=== PATIENT | female | born 1975 | race Caucasian/White ===

== ENCOUNTER 2018-06-14 00:19 | Outpatient (CLI) | payer OTHER, SELFPAY ==
--- NOTE | 2018-06-14 15:00 | DI.MAMMO_ITS ---
SYMPTOM/DIAGNOSIS: 6 MONTH F/U, R92.8, H/O RT BREAST LUMP MAMMOGRAMS: Mammograms were interpreted according to the usual protocol including computer analysis with CAD system, tomosynthesis and C view imaging. Comparison is made with prior examinations. Breast density, Category B. No masses or microcalcifications are seen. There is nothing to suggest malignancy. IMPRESSION: Negative mammogram. Routine screening is recommended. Category 1. MQSA ASSESSMENT OF FINDINGS: Negative. Category 1. Patient will receive a letter notifying them of these results. BI-RADS category B. There are scattered areas of fibroglandular density.
== END 2018-06-14 00:39 ==
DX: R92.8 Other abnormal and inconclusive findings on diagnostic imaging of breast (principal)
CPT/HCPCS: 77062; 77066; G0279

== ENCOUNTER 2018-06-15 02:09 | Outpatient (CLI) | payer OTHER, SELFPAY ==
[2018-06-15 11:47] LABS: ALT 31 U/L (12-78); AST 16 U/L (15-37); Albumin 3.7 g/dL (3.4-5.0); Alkaline Phosphatase 75 U/L (46-116); Anion Gap 8.5 mmol/L (3-11); BUN 14 mg/dL (7-18); Bilirubin, Total 0.3 mg/dL (0.2-1.0); CO2 27.5 mmol/L (21.0-32.0); CREATININE 0.76 mg/dL (0.55-1.02); Calcium 8.5 mg/dL (8.5-10.1); Chloride 105 mmol/L (98-107); Cholesterol 169 mg/dL (50-200); Glucose 98 mg/dL (70-100); HDL Cholesterol 35 mg/dL (40-60); LDL CHOLESTEROL 118 mg/dL (<100); Potassium 4.6 mmol/L (3.5-5.1); Sodium 141 mmol/L (136-145); TSH (W/Ref FT4) 2.39 uIU/mL (0.358-3.74); Total Protein 7.3 g/dL (6.4-8.2); Triglyceride 97 mg/dL (30-150)
== END 2018-06-15 02:29 ==
DX: F32.9 Major depressive disorder, single episode, unspecified (principal); E03.9 Hypothyroidism, unspecified; M77.11 Lateral epicondylitis, right elbow; M77.12 Lateral epicondylitis, left elbow; Z00.00 Encounter for general adult medical examination without abnormal findings
CPT/HCPCS: 36415; 80053; 80061; 83721; 84443

== ENCOUNTER 2019-06-05 01:38 | Outpatient (CLI) | payer OTHER, SELFPAY ==
[2019-06-05 08:42] LABS: ALT 25 U/L (14-59); AST 16 U/L (15-37); Albumin 3.5 g/dL (3.4-5.0); Alkaline Phosphatase 75 U/L (46-116); Anion Gap 8.3 mmol/L (3-11); BUN 14 mg/dL (7-18); Bilirubin, Total 0.4 mg/dL (0.2-1.0); CO2 26.7 mmol/L (21.0-32.0); CREATININE 0.64 mg/dL (0.55-1.02); Calcium 8.7 mg/dL (8.5-10.1); Chloride 107 mmol/L (98-107); Glucose 101 mg/dL (70-100); Potassium 4.1 mmol/L (3.5-5.1); Sodium 142 mmol/L (136-145); Total Protein 7.1 g/dL (6.4-8.2)
== END 2019-06-05 01:58 ==
DX: E03.9 Hypothyroidism, unspecified (principal); F32.9 Major depressive disorder, single episode, unspecified; G89.29 Other chronic pain; M54.5 Low back pain; R63.8 Other symptoms and signs concerning food and fluid intake; Z00.00 Encounter for general adult medical examination without abnormal findings
CPT/HCPCS: 36415; 80053; 84443

== ENCOUNTER 2019-06-27 00:28 | Outpatient (CLI) | payer OTHER, SELFPAY ==
--- NOTE | 2019-06-27 16:18 | DI.MAMMO_ITS ---
EXAM: MAMMO SCREENING CLINICAL HISTORY: screening Z12.39. TECHNIQUE: Mammograms were interpreted according to the usual protocol including computer analysis w [employer] CAD system, tomosynthesis and C-view imaging. FINDINGS: The breast tissue is of moderate radiodensity. When compared with previous images, there is a questi on regarding interval development of a small area of nodularity in the posterior portion of the left breast medially. There are no suspicious calcifications. IMPRESSION: Question small left breast nodule, category 0. Further evaluation with a craniocaudad compression spo t film and ultrasound is recommended. Breast density, B. BI-RADS Cat 0 - Assessment Incomplete: Need additional imaging evaluation. Breast Density - Category B - Scattered areas of fibroglandular density.
== END 2019-06-27 00:48 ==
DX: Z12.31 Encounter for screening mammogram for malignant neoplasm of breast (principal); R92.8 Other abnormal and inconclusive findings on diagnostic imaging of breast
CPT/HCPCS: 77063; 77067

== ENCOUNTER 2019-07-04 01:07 | Outpatient (CLI) | payer OTHER, SELFPAY ==
--- NOTE | 2019-07-04 14:56 | DI.MAMMO_ITS ---
EXAM: Left mammogram callback and left breast ultrasound CLINICAL HISTORY: F/U ABNORMAL MAMMO, ? REGARDING INTERVAL DEVELOPMENT OF SMALL AREA OF NODULARITY IN POSTERIOR PORTION OF LT BREAST COMPARISON: Available for comparison TECHNIQUE: Full Field digital Mammography views with Computer Aided Diagnosis followed by Breast T omosynthesis and left breast ultrasound. FINDINGS: The area of concern is less prominent on the current examination. No associated microcalcifications are appreciated. A left breast ultrasound was performed. No suspicious solid masses are seen. Ther e is a 2 x 3 x 2 mm simple cyst at the 11 o'clock position of the left breast 6 cm from the nipple. This does not appear to correspond to the mammographic abnormality. Breast Density - Category B - Scattered areas of fibroglandular density Impression: 1. No definite evidence for malignancy at this time. 2. Six-month follow-up mammogram is recommended for re-evaluation. BI-RADS Cat 3 - 6 month - Probably Benign Finding: Recommend follow-up mammography in 6 months Findings were discussed with the patient on the date of the examination. A negative radiographic report should not delay biopsy if a dominant or clinically suspicious mass is present. Up to ten percent of cancers are not identified on mammography. A negative report may reinforce clinical impression. Adenosis and dense breasts may obscure an underlying neoplasm. False positive reports average 6 to 10%.
== END 2019-07-04 01:27 ==
DX: Z12.31 Encounter for screening mammogram for malignant neoplasm of breast (principal); R92.8 Other abnormal and inconclusive findings on diagnostic imaging of breast; N60.02 Solitary cyst of left breast
CPT/HCPCS: 76642; 77063; 77067

== ENCOUNTER 2020-06-09 15:03 | Outpatient (REF) | payer SELFPAY ==
--- NOTE | 2020-06-09 14:00 | PAPFT_PTH ---
PATIENT: Noman Lewis LOC: [facility] U#:[id number] AGE/SX: 44/F ROOM: RE06/09/[address]: Kylee Tirado APRN : 1975 BED: DIS: 06/09/2020 SPEC #: [id number] RECD: 06/10/20 12:30 STATUS: KRUPA REYES #: [id number] OUMAR: 06/09/20 14:[address]: Kylee Tirado [facility] Cytology RECD BY: Delphine Rankin Tissues: 1 - CX/ENDOCX FOR PAP SMEARS Procedures: PAP THIN PREP/UVM Screening HPV DNA PROBE Comments: [id number]
== END 2020-06-09 15:23 ==
LOC: LBN 15:03
DX: Z12.4 Encounter for screening for malignant neoplasm of cervix (principal); Z11.51 Encounter for screening for human papillomavirus (HPV)
CPT/HCPCS: 88142; 87624

== ENCOUNTER 2020-06-11 01:21 | Outpatient (CLI) | payer SELFPAY ==
[2020-06-11 09:19] LABS: Glucose 91 mg/dL (74-106); TSH (W/Ref FT4) 1.01 uIU/mL (0.36-3.74)
== END 2020-06-11 01:41 ==
PROVIDERS: Nurse Practitioner Family
DX: E03.9 Hypothyroidism, unspecified (principal); R73.9 Hyperglycemia, unspecified
CPT/HCPCS: 36415; 82947; 84443

== ENCOUNTER 2020-07-07 02:10 | Outpatient (CLI) | payer SELFPAY ==
--- NOTE | 2020-07-07 08:15 | DI.MAMMO_ITS ---
EXAM: MG MAMMO SCREENING CLINICAL HISTORY: screening,Z12.39,H/O ABNL THAT PT DID NOT RETURN FOR FOLLOW UP TECHNIQUE: Bilateral full field digital CC and MLO mammographic images were obtained with 3D tomosyn thesis and utilizing computer aided detection (CAD). COMPARISON: Available for comparison. FINDINGS: Masses/Architectural Distortion: None seen. Microcalcifications: No suspicious pleomorphic-type are seen. Skin Thickening/Nipple Retraction: None. IMPRESSION: 1. No significant interval change with no specific features of malignancy noted. 2. Unless there is more urgent need, screening mammography is recommended, as per [employer] guidelines. BI-RADS Category 1 - Negative Breast Density - Category B - Scattered areas of fibroglandular density A negative radiographic report should not delay biopsy if a dominant or clinically suspicious mass is present. Up to ten percent of cancers are not identified on mammography. A negative report may reinforce clinical impression. Adenosis and dense breasts may obscure an underlying neoplasm. False positive reports average 6 to 10%. Patient will receive a letter notifying them of these results.
== END 2020-07-07 02:30 ==
DX: Z12.31 Encounter for screening mammogram for malignant neoplasm of breast (principal)
CPT/HCPCS: 77063; 77067

== ENCOUNTER 2021-06-11 16:29 | Outpatient (REF) | payer SELFPAY ==
--- NOTE | 2021-06-11 15:00 | PAPFT_PTH ---
PATIENT: Noman Lewis LOC: [facility] U#:[id number] AGE/SX: 45/F ROOM: RE06/11/[address]: Kylee Tirado APRN : 1975 BED: DIS: 06/11/2021 SPEC #: [id number] RECD: 06/11/21 17:56 STATUS: KRUPA REWalker #: [id number] OUMAR: 06/11/21 15:[address]: Kylee Tirado [facility] Cytology RECD BY: Chantale Leonard Tissues: 1 - CX/ENDOCX FOR PAP SMEARS Procedures: PAP THIN PREP/UVM Screening HPV DNA PROBE Comments: [id number]
== END 2021-06-11 16:30 | disposition home or self-care (01) ==
LOC: LBN 16:29
DX: Z12.4 Encounter for screening for malignant neoplasm of cervix (principal); Z11.51 Encounter for screening for human papillomavirus (HPV)
CPT/HCPCS: 88142; 87624

== ENCOUNTER 2021-06-17 04:08 | Outpatient (CLI) | payer SELFPAY ==
[2021-06-17 08:54] LABS: Glucose 91 mg/dL (74-106)
== END 2021-06-17 04:09 | disposition home or self-care (01) ==
LOC: LBO 04:08
DX: R73.9 Hyperglycemia, unspecified (principal); E03.9 Hypothyroidism, unspecified
CPT/HCPCS: 36415; 82947; 84443

== ENCOUNTER 2022-07-01 03:58 | Outpatient (CLI) | payer BC, SELFPAY ==
[2022-07-01 08:11] LABS: ALT 13 U/L (14-59); AST 14 U/L (15-37); Albumin 3.4 g/dL (3.4-5.0); Alkaline Phosphatase 85 U/L (46-116); Anion Gap 4.4 mmol/L (3-11); BUN 16 mg/dL (7-18); Bilirubin, Total 0.3 mg/dL (0.2-1.0); CO2 29.6 mmol/L (21.0-32.0); CREATININE 0.8 mg/dL (0.55-1.02); Calcium 8.7 mg/dL (8.5-10.1); Calculated LDL 113 mg/dL (<100); Chloride 105 mmol/L (98-107); Cholesterol 170 mg/dL (<200); Estimated GFR 91.97 (mL/min/1.73m2); Glucose 102 mg/dL (74-106); HDL Cholesterol 44 mg/dL (40-60); Potassium 3.6 mmol/L (3.5-5.1); Sodium 139 mmol/L (136-145); TSH (W/Ref FT4) 2.55 uIU/mL (0.36-3.74); Total Protein 7.4 g/dL (6.4-8.2); Triglyceride 65 mg/dL (<150)
== END 2022-07-01 03:59 | disposition home or self-care (01) ==
LOC: LBO 03:58
DX: Z00.00 Encounter for general adult medical examination without abnormal findings (principal); Z13.220 Encounter for screening for lipoid disorders; E03.9 Hypothyroidism, unspecified
CPT/HCPCS: 36415; 80053; 80061; 84443

== ENCOUNTER 2022-07-07 15:21 | Outpatient (CLI) | payer BC, SELFPAY ==
--- NOTE | 2022-07-07 15:00 | DI.RAD_ITS ---
Exam(s) XR FOOT RT COMPLETE EXAM: XR FOOT RT COMPLETE CLINICAL HISTORY: foot pain M76.60 M77.41 METATARSALGIA M20.41 HAMMER TOE G89.29. TECHNIQUE: 2D digital imaging was performed. Three views. COMPARISON: No exams were available for comparison FINDINGS: BONES: No acute fracture is present. No bony destructive lesion is seen. Heel spurs. Plantar arch i s maintained. JOINTS: No dislocation present. Hammertoe deformities noted. Valgus deviation of the 3rd toe at the MTP joint. Mild intertarsal degenerative changes. SOFT TISSUE: Normal. IMPRESSION: Heel spurs and hammertoe deformities. DATA REPOSITORY: RADIATION DOSE DELIVERED:
--- NOTE | 2022-07-07 15:00 | DI.RAD_ITS ---
Exam(s) XR FOOT LT COMPLETE EXAM: XR FOOT LT COMPLETE CLINICAL HISTORY: foot pain M20.42 HAMMER TOE M77.42 METATARSALGIA M79.672 PAIN M76.60. TECHNIQUE: 2D digital imaging was performed. Three views. COMPARISON: CR XR FOOT RT COMPLETE from 07/07/2022 FINDINGS: BONES: No acute fracture is present. No bony destructive lesion is seen. Prominent heel spurs. Plan tar arch is maintained. Mild valgus deviation of the 3rd toe. JOINTS: No dislocation present. Mild intertarsal degenerative changes. SOFT TISSUE: Normal. IMPRESSION: Degenerative changes and spurs. DATA REPOSITORY: RADIATION DOSE DELIVERED:
--- OUTSIDE RECORDS SUMMARY | 2022-07-07 15:24 | XMS_ITS | Encounter Summary ---
:1975 Author Organization [facility] [place] [address] Care Team Providers Name Role Phone Melissatianna Katarina Chun APRN Primary Care Provider Encounter Details Date Type Department Care Team Description 03/19/2015 Hospital Encounter XRay at [address] salasondylsilver/mikaela SAUMYA [place] [phone] elbow, right [phone] Social History Tobacco Use Types Packs/Day Years Used Date Former Smoker Quit: 03/19/20 Smokeless Tobacco: Never Used Alcohol Use Standard Drinks/Week Comments No 0 (1 standard drink = 0.6 oz pure alcoho l) occasional/ bi weekly Alcohol Habits Answer Date Recorded How often do you have a drink containing alcohol? Not asked How many drinks containing alcohol do you have on Not asked a typical day when you are drinking? How often do you have six or more drinks on one Not asked occasion? Comment: occasional/ bi weekly 07/03/2013 Sex Assigned at Date Recorded Not on file documented as of this encounter Medications at Time of Discharge Medication Sig Dispensed Refills Start Date End Date meloxicam (MOBIC) 7.5 mg Take 7.5 mg by mouth 0 Tablet 2 times daily. diclofenac 1 % Gel Apply 2 g topically 4 0 times daily. levothyroxine (SYNTHROID) Take 200 mcg by mouth 0 200 mcg tablet daily. documented as of this encounter Plan of Treatment Not on filedocumented as of this encounter Procedures Procedure Name Priority Date/Time Associated Diagnosis Comme nts XR ELBOW 3 VIEW Routine 03/19/2015 8:39 AM Lateral Result s for this COMPLETE EDT epicondylitis/tennis procedu re are in elbow, right the results section. documented in this encounter Results XR elbow 3 view complete (03/19/2015 8:39 AM EDT) Anatomical Region Laterality Modality Elbow N/A Radiographic Imaging Specimen (Source) Anatomical Collection Method Collection Time Re ceived Time Location / / Volume Laterality 03/19/2015 8:39 AM EDT Impressions 03/19/2015 9:12 AM EDT IMPRESSION: No osseous abnormality seen. This report was reviewed by Anna Marie jacob at 03/19/2015 9:07 AM Film and interpretation reviewed by the attending Narrative 03/19/2015 9:12 AM EDT EXAMINATION: ELBOW 3 VIEW COMPLETE/RIGHT CLINICAL HISTORY: Lack of full extension for years - more recent lateral epicondylitis TECHNIQUE: AP, oblique, lateral of the r ight elbow. COMPARISON: None FINDINGS: No acute fractures. The alignment of the elbow joint is within normal limits. No elbow joint effusion. No periarticular c alcifications. No radiopaque foreign body. Procedure Note Anna Marie Bray MD - 03/19/2015Formatt ing of this note might be different from the original. EXAMINATION: ELBOW 3 VIEW COMPLETE/RIGHT CLINICAL HISTORY: Lack of full extension for years - more recent lateral epicondylitis TECHNIQUE: AP, oblique, lateral of the r ight elbow. COMPARISON: None FINDINGS: No acute fractures. The alignment of the elbow joint is within normal limits. No elbow joint effusion. No periarticular c alcifications. No radiopaque foreign body. IMPRESSION IMPRESSION: No osseous abnormality seen. This report was reviewed by Anna Marie jacob at 03/19/2015 9:07 AM Film and interpretation reviewed by the attending Kev Pierce MD IMG DX ORDERABLES documented in this encounter Visit Diagnoses Diagnosis Lateral epicondylitis/tennis elbow, righ t documented in this encounter Care Teams Quality Assurance Lead Relationship Specialty Start Date End Date Katarina James, FIGHTER PILOT PCP - General 03/13/15 documented as of this encounter
--- OUTSIDE RECORDS SUMMARY | 2022-07-07 15:24 | XMS_ITS | Encounter Summary ---
:1975 Author Organization [facility] [place] [address] Care Team Providers Name Role Phone Evan Edwards DO Primary Care Provider Encounter Details Date Type Department Care Team Description 07/03/2013 Office Visit Same Day at [facility] [place] [address] Anesthesia Record Procedure Summary Procedure Name Responsible Anesthesia Start Anesthesia Stop Anesthesiologist Time Time ENDOVENOUS ABLATION Ulices Miranda MD 07/13/13 0823 07/13/13 1034 THERAPY OF INCOMPETENT VEIN, EXTREMITY, FIRST VEIN (WRVU 5.3) (Right Leg Upper) Events Date Time Event Comment 07/13/2013 0805 0823 Start 0825 AN Verify 0827 An Start Data 0833 An Induction 0835 An Intubation 0836 Anesthesia Ready 1015 Extubation/LMA Out 1034 an stop data 1034 Stop No medications on file. Agents No agents on file. Blood No blood administrations on file. Lines, Drains, and Airways Type Details Placement Removal PIV 07/13/13; 1313 07/13/13 0843 by 07/13/13 1313 b y Siomara Luevano RN (RETIRED) Non-Surgical Mask Ventilation: 07/13/13 0843 by 1015 by Airway Adjunct (2); ETT Ulices Miranda MD Type: Cuffed, Oral; ETT Size: 7 mm Incision 07/13/13; 0904; calf 07/13/13 0904 by 07/13/13 1 313 by (right lower leg Ventura Rabago Wetherell, Celeste multiple small stab LEONCIO Barraza, RN incisions); 07/13/13; 1313 documented in this encounter Social History Tobacco Use Types Packs/Day Years Used Date Former Smoker Alcohol Habits Answer Date Recorded How often [...] on file documented as of this encounter Plan of Treatment Not on filedocumented as of this encounter Visit Diagnoses Not on filedocumented in this encounter Care Teams Bobbin Handler Relationship Specialty Start Date End Date Evan Edwards DO PCP - General 10/11/12 03/12/[address] [place] [phone] documented as of this encounter
--- OUTSIDE RECORDS SUMMARY | 2022-07-07 15:24 | XMS_ITS | Encounter Summary ---
:1975 Author Organization [facility] [place] [address] Care Team Providers Name Role Phone Jerry Duane Martinez Primary Care Provider Encounter Details Date Type Department Care Team Description 05/08/2013 Ancillary Appointment Vascular Surgery at [facility] Varicose veins [facility] [place] [address] Social History Tobacco Use Types Packs/Day Years Used Date Former Smoker Sex Assigned at Date Recorded Not on file documented as of this encounter Plan of Treatment Not on filedocumented as of this encounter Procedures Procedure Name Priority Date/Time Associated Diagnosis Comme nts UNLATERAL VALVULAR Routine 05/08/2013 9:31 AM Varicose veins R esults for this INCOMP EDT procedure are i n the results section. documented in this encounter Results LE Unilateral Valvular Incomp Study (05/08/2013 9:31 AM EDT) Component Value Ref Test Analysis Performed At [facility] Range Method Time Signature VB Text VASCUBASE Report Department: Vascular Surgery Lab Patient: [id number] (PABLO LEWIS) CPT Code: 16964 ICD-9: 459.81 Referring Physician: EUGENIA SANTOS Indication: ?? painful varicose veins right ankle; ? valvula r incompetence ICD9 Diagnosis Code: 459.81 Findings: Right ?Reflux?Diameter ??Dept h ?? Common Femoral Vein ?Reflux ? Femoral Vein ? Reflux ? Popliteal ?Reflux ? Posterior Tibial Vein ??Competent ? GSV, Near SFJ ?Reflux ?8.9 ?? 20.0 ?? GSV, Proximal Thigh ?Reflux ?5.7 ?? 23.9 ?? GSV, Mid Thigh ? Reflux ?4.6 ?? 30.4 ?? GSV, Distal Thigh ?Reflux ?6.2 ?? 25.6 ? ? GSV, ??Knee ? Reflux ?5.0 ?? 13 .6 ?? GSV Prox Calf ?Reflux ? GSV, Mid Calf ?Reflux ? GSV, Ankle ? Reflux ? SSV ?Competent ? Interpretation: Deep and superficial vein valvular inc ompetence in the RIGHT lower extremity: There is deep venous valvular incompetence in the common femoral vein, femoral vein t hrough the thigh and in the popliteal vein. There is superficial valvular incompe tence in the great saphenous vein from the groin to the ankle. There is a 5.2 mm incompetent primary education professor near the superior, anterior margin of the area of skin discoloration at the ankle, locat ion marked. No identifiable reflux in the small saphenous vein. No evidence of thrombus in the deep or superficial veins. Comparison: ??No previous study in our vascular lab da tabase for comparison. Electronically Signed by: DUANE HAYWOOD on 2013-05-09 12:23: 14 AM VB Text End of Report VASCUBASE Report Specimen (Source) Anatomical Collection Method Collection Time Re ceived Time Location / / Volume Laterality 05/08/2013 9:31 AM EDT Eugenia Santos MD VASCULAR ORDERABLES Performing Organization Address City/State/ZIP Code Phon e Number VASCUBASE documented in this encounter Visit Diagnoses Diagnosis Varicose veins Asymptomatic varicose veins documented in this encounter Care Teams Commercial Credit Specialist Relationship Specialty Start Date End Date Duane Edwards DO PCP - General 10/11/12 03/12/15 [address] [place] [phone] documented as of this encounter
--- OUTSIDE RECORDS SUMMARY | 2022-07-07 15:24 | XMS_ITS | Encounter Summary ---
:1975 Author Organization [facility] [place] [address] Care Team Providers Name Role Phone Katarina James APRN Primary Care Provider Encounter Details Date Type Department Care Team Description 03/19/2015 Unscheduled Encounter Orthopaedics [place] [address] Social History Tobacco Use Types Packs/Day [...] on filedocumented in this encounter Care Teams Soft Boarder Relationship Specialty Start Date End Date Katarina James APRN PCP - General 03/13/15 documented as of this encounter
--- OUTSIDE RECORDS SUMMARY | 2022-07-07 15:24 | XMS_ITS | Encounter Summary ---
:1975 Author Organization [facility] [place] [address] Care Team Providers Name Role Phone Evan Edwards DO Primary Care Provider Encounter Details Date Type Department Care Team Description 07/13/2013 Orders Only Vascular Surgery at Callie Simpson, Varico se veins (Primary [facility] [place] RN Dx) [place] [address] Social History Tobacco Use Types Packs/Day [...] filedocumented as of this encounter Visit Diagnoses Diagnosis Varicose veins - Primary Asymptomatic varicose veins documented in this encounter Care Teams Event Coordinator Marketing And Sales Relationship Specialty Start Date End Date Evan Edwards DO PCP - General 10/11/12 03/12/15 [address] [place] [phone] documented as of this encounter
--- OUTSIDE RECORDS SUMMARY | 2022-07-07 15:24 | XMS_ITS | Encounter Summary ---
:1975 Author Organization [facility] [place] [address] Care Team Providers Name Role Phone Evan Edwards DO Primary Care Provider Reason for Visit Reason Comments Leg Ulcer Encounter Details Date Type Department Care Team Description 05/08/2013 Office Visit Vascular Surgery at [facility] Jefferson Chr onic venous [facility] [place] ([facility]x) [facility] DR [place] VASCULAR SURGERY [phone] [place] [address] [phone] Social History Tobacco Use Types Packs/Day Years Used Date Former Smoker Sex Assigned at Date Recorded Not on file documented as of this encounter Last Filed Vital Signs Vital Sign Reading Time Taken Comments Blood Pressure 128/60 05/08/2013 10:54 AM EDT Pulse 72 05/08/2013 10:54 AM EDT Temperature - - Respiratory Rate - - Oxygen Saturation - - Inhaled Oxygen Concentration - - Weight 145.2 kg (320 lb) 05/08/2013 10:54 AM EDT Height 182.9 cm (6') 05/08/2013 10:54 AM EDT Body Mass Index 43.4 05/08/2013 10:54 AM EDT documented in this encounter Progress Notes Evan Jefferson MD - 06/17/2013 7:43 PM EDT Reason for Visit Dr. Evan Edwards requested a consultation for painful varicosities and skin breakdown at the right medial malleolus HPI Noman Lewis is a 37-year-old woman with a 4 year history of painful varicose veins and a hypersensitive and painful area of skin just above her right medial malleolus. This area has never been frankly ulcerated, but the skin is alternately friable or scabbed over. The pain in this region keeps herawake at night. She has burning pain if the sheets touch the spot. She tried knee-high compression stockings 2 years ago, but she could not tolerate those. She has had two episodes of cellulitis near her ankle requiring antibiotics, the first in October 2012. This resolved but then recurred, requiring a second course of antibiotics. History of PE No History of DVT No Hx leg swelling Yes Hx venous ulcer As above PMH Depressive disorder Fatigue History of tobacco abuse Hyperlipidemia Hypothyroidism Obesity Plantar fasciitis causing foot pain Polycystic ovaries PSH None Vascular meds Aspirin No Coumadin No Lovenox No Other meds Recorded and reconciled in eDH. List includes Levoxyl 200 mcg daily Allergies Codeine/codeine derivatives [facility] Strong family history for diabetes mellitus. No drug or alcohol use. Quit smoking 15 years ago.Single. Exercises frequently. Enjoys hiking and snow showing. 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 ROS Constitutional Denies fever, chills, fatigue Cardiac No angina, No overt CHF sx, no palpitations Pulmonary No HAYS, no dyspnea at rest GI Denies nausea, vomiting, diarrhea, constipation Denies UTI symptoms Musculoskeletal Denies joint pain, muscle aches Endocrine Denies s/s DM Derm Per HPI Psyche No s/s psychiatric issues Neuro Denies stroke, TIA, amaurosis fugax, dysarthria Physical Exam General Pleasant well-nourished woman in [facility]. 128/60, 72, regular, 6 feet tall, 145 kg, BMI 43.4 Carotid pulses Normal pulses, no bruits Radial pulses Normal pulses bilaterally Heart Normal S1-S2 no MGR Lungs Clear bilaterally Upper Ext Full range of motion, no lesions Abdomen Soft, nontender Lower Ext Full range of motion. Right lower extremity has an area of lipodermatosclerosis, and justabove her right medial malleolus there is a scabbed over area of advanced hemosiderin deposit. The lesion looks immediately pre-ulcerative, but she reports it has been this way for a long time. She has several moderate size varicose veins medially. Femoral pulses Normal bilaterally Popliteal pulses Normal bilaterally DP pulses Normal bilaterally PT pulses Palpable on left, not palpable on right since adjacent to area of skin sclerosis Motor/Sensory Fully intact bilaterally Psyche Oriented x3 Venous Duplex I examined today???s venous duplex exam in detail. She has reflux in the right common femoral vein, femoral vein, and popliteal vein. Her posterior tibial vein on the right is competent. In addition, she has reflux throughout the greater saphenous vein from the saphenofemoral junction all the way to her ankle. The diameter of her GSV ranges from 4.6-8.9 mm. The short saphenous vein is competent. CT scan None available Other studies No other studies available Impression Ms. Lewis has a combination of deep and superficial venous incompetence with advanced chronic venous insufficiency skin change just above her malleolus. The superficial venous incompetence can be treated with radiofrequency ligation, and that should help substantially, but she really also needs to find some form of compression that she can live with. Otherwise, the area of skin adjacent toher right medial malleolus is at high risk for carol ulceration. I discussed these recommendations with her in detail. I reviewed indications, risks, and benefits ofgreater saphenous vein radiofrequency ablation. Specifically, I outlined the small but real chance for a postoperative DVT. She understands and wants to proceed. She is very busy at work this time a year, and she the operation be scheduled in July. Recommendations Schedule RLE radiofrequency GSV ablation in Jul, 2013 Patient encouraged to elevate lower extremity whenever relaxing Patient encouraged to reconsider knee-high compression Patient encouraged to use skin lotion aggressively on RT calf Educational booklet dispensed All questions answered I appreciate being asked to perform this consultation Evan Jefferson M.D. Section of Vascular Surgery CC: Evan Edwards DO documented in this encounter Plan of Treatment Not on filedocumented as of this encounter Visit Diagnoses Diagnosis Chronic venous insufficiency - Primary Unspecified venous (peripheral) insuffic iency documented in this encounter Care Teams Pugger Helper Relationship Specialty Start Date End Date Evan Edwards DO PCP - General 10/11/12 03/12/15 [address] [place] [phone] documented as of this encounter
--- OUTSIDE RECORDS SUMMARY | 2022-07-07 15:24 | XMS_ITS | Encounter Summary ---
:1975 Author Organization [facility] [place] [address] Care Team Providers Name Role Phone Davisisis Katarina Chun APRN Primary Care Provider Encounter Details Date Type Department Care Team Description 04/02/2015 Hospital Encounter MRI at [facility], CONV Lateral [facility] Kev Pierce MD [facility] [address] [place] [address] [address] elbow, [place] [address] Social History Tobacco Use Types Packs/Day Years [...] Sig Dispensed Refills Start Date End Date diclofenac-misoprostol Take 1 tablet by 15 tablet 2 015 (ARTHROTEC 75) 75-200 mouth 2 times daily mg-mcg Tab,IR & Delay (with meals). Rel,MultiphasicIndications : Lateral epicondylitis/tennis elbow, left meloxicam (MOBIC) 7.5 mg Take 7.5 mg by mouth 0 Tablet 2 times daily. diclofenac 1 % Gel Apply 2 g topically 4 0 times daily. levothyroxine (SYNTHROID) Take 200 mcg by mouth 0 200 mcg tablet daily. documented as of this encounter Plan of Treatment Not on filedocumented as of this encounter Procedures Procedure Name Priority Date/Time Associated Diagnosis Comme nts MRI ELBOW WO Routine 04/02/2015 1:55 PM Lateral Results f or this CONTRAST EDT epicondylitis/tennis procedu re are in elbow, right the results section. documented in this encounter Results MRI elbow WO contrast (04/02/2015 1:55 PM EDT) Anatomical Region Laterality Modality Elbow Magnetic Resonance Specimen (Source) Anatomical Collection Method Collection Time Re ceived Time Location / / Volume Laterality 04/02/2015 1:55 PM EDT Narrative 04/02/2015 2:33 PM EDT EXAMINATION: MR Elbow without contrast/RIGHT CLINICAL HISTORY: ^-8 months of lateral epicondylits ??Long standing extension lag of this elbow TECHNIQUE: ?[Axial, coronal, and sag ittal proton density images of the elbow were obtained. ] COMPARISON: Radiographs from March 19 15 Findings Elbow Joint effusion Trace fluid in the elbow joint Medial compartment Ulnar collateral ligament: Normal Common flexor tendon: Normal Medial epicondyle: Normal Lateral compartment Radial collateral ligament: Normal Lateral ulnar collateral ligament: Arabella l Common extensor tendon: Insertional tendinopathy with enlarged t endons, series 5 image 18. Linear bright T2 fluid signal at the extensor carpi ra dialis suggests high-grade tear. The extensor carpi radialis longus tendon is also attenuated series 5 image 19. Lateral epicondyle: Normal Posterior compartment Triceps: Normal Olecranon: Normal Bursitis: None Anterior compartment Biceps normal Brachialis: Intact Bicipitoradial bursa: No fluid in bursa. Articulations Radio-capitellar joint: Normal appearanc e and alignment. Ulno-humeral joint: Normal Proximal radio-ulnar joint: Intact Other findings Bones (other than subarticular marrow): Normal Muscles: Normal and symmetric Vessels: Patent Nerves: The appearance of the ulna, median and r adial nerves is normal. Anconeus epitrochlearis muscle: Absent Intra-articular bodies: None Impression 1. ??Common extensor insertional tendino fernando with high-grade tear of the extensor carpi radialis brevis and parti al tear of the of the extensor carpi radialis longus. 2. ??Intact tendons. Procedure Note Anna Marie Bray MD - 04/02/2015Formatt ing of this note might be different from the original. EXAMINATION: MR Elbow without contrast/R IGHT CLINICAL HISTORY: ^-8 months of lateral epicondylits Long standing extension lag of this elbow TECHNIQUE: [Axial, coronal, and sagittal proton density images of the elbow were obtained. ] COMPARISON: Radiographs from March 19 Findings Elbow Joint effusion Trace fluid in the elbow joint Medial compartment Ulnar collateral ligament: Normal Common flexor tendon: Normal Medial epicondyle: Normal Lateral compartment Radial collateral ligament: Normal Lateral ulnar collateral ligament: Arabella l Common extensor tendon: Insertional tendinopathy with enlarged t endons, series 5 image 18. Linear bright T2 fluid signal at the extensor carpi ra dialis suggests high-grade tear. The extensor carpi radialis longus tendon is also attenuated series 5 image 19. Lateral epicondyle: Normal Posterior compartment Triceps: Normal Olecranon: Normal Bursitis: None Anterior compartment Biceps normal Brachialis: Intact Bicipitoradial bursa: No fluid in bursa. Articulations Radio-capitellar joint: Normal appearanc e and alignment. Ulno-humeral joint: Normal Proximal radio-ulnar joint: Intact Other findings Bones (other than subarticular marrow): Normal Muscles: Normal and symmetric Vessels: Patent Nerves: The appearance of the ulna, median and r adial nerves is normal. Anconeus epitrochlearis muscle: Absent Intra-articular bodies: None Impression 1. Common extensor insertional tendinopa thy with high-grade tear of the extensor carpi radialis brevis and parti al tear of the of the extensor carpi radialis longus. 2. Intact tendons. Kev Pierce MD IMG MRI ORDERABLES documented in this encounter Visit Diagnoses Diagnosis Lateral epicondylitis/tennis elbow, righ t documented in this encounter Care Teams Beef Splitter Relationship Specialty Start Date End Date Katarina James APRN PCP - General 03/13/15 documented as of this encounter
--- OUTSIDE RECORDS SUMMARY | 2022-07-07 15:24 | XMS_ITS | Encounter Summary ---
:1975 Author Organization [facility] Address [facility] [place] [address] Care Team Providers Name Role Phone Katarina James Adiel HOLM Primary Care Provider Reason for Visit Reason Comments Elbow Injury 07/29/2014 L lat epicondylit is Encounter Details Date Type Department Care Team Description 04/02/2015 Office Visit Orthopaedics at [facility], Lateral [facility] Kev Fung MD epicondylitis/tennis Drive [facility], [place] [address] [place] [address] ORTHOPAEDIC SURGERY [place] [address] Social History Tobacco Use Types Packs/Day Years [...] Sign Reading Time Taken Comments Blood Pressure 127/69 04/02/2015 3:47 PM EDT Pulse 80 04/02/2015 3:47 PM EDT Temperature - - Respiratory Rate - - Oxygen Saturation - - Inhaled Oxygen Concentration - - Weight 123.8 kg (273 lb) 04/02/2015 3:47 PM EDT pt repo rted Height 182.9 cm (6') 04/02/2015 3:47 PM EDT pt report ed Body Mass Index 37.03 04/02/2015 3:47 PM EDT documented in this encounter Progress Notes Kev Pierce MD - 04/02/2015 3:53 PM EDT This 39 yo white female presents with chronic R elbow pain - 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 [employer] and she developed chronic lateral elbow pain since She has had PT and several injections of steroid and plasma without too much help Seh wears a tennis elbow band and has used a wrist brace as well She remains on Meloxicam twice per day and Voltaren gel ROS - she had prior lack of full extension of the elbow sionce she was playing basketball in college No other medical issues Smoking - quit 15 years ago ETOH - occ PE - Wd/WN white female in NAD - alert and oriented x 3 Skin - clear R elbow - she does lack about 3-5 degrees of extension r elbow - that is long standing She is tender to touch just distal to the lateral epicondyle She has pain with resisted extension of the wrist and long finger NV check WNL We had an MRI here since she lacks full extension and there was no obvious cause for that but she indeed has a common extensor origin and a ext brevis tear A: Chronic lateral epicondylitis with tears int he common extensor origin and the ext carpi raidal brevis Plan We will consider injecting since she is on Meloxicam and still having pain We could consider switching to Arthrotec 75mg bid withj meals = she stops the Melicam If no better will consider injection of steroid documented in this encounter Plan of Treatment Not on filedocumented as of this encounter Visit Diagnoses Diagnosis Lateral epicondylitis/tennis elbow, left documented in this encounter Care Teams Concrete Mixing Plant Superintendent Relationship Specialty Start Date End Date Katarina James APRN PCP - General 03/13/15 documented as of this encounter
--- OUTSIDE RECORDS SUMMARY | 2022-07-07 15:24 | XMS_ITS | Encounter Summary ---
:1975 Author Organization [facility] [place] [address] Care Team Providers Name Role Phone Duane Edwards Primary Care Provider Encounter Details Date Type Department Care Team Description 10/13/2012 Orders Only Vascular Surgery at [facility], [place] se veins (Primary [facility] [place] [address] Social History Tobacco Use Types Packs/Day Years Used Date Never Assessed Sex Assigned at Date Recorded Not on file documented as of this encounter Plan of Treatment Not on filedocumented as of this encounter Results LE Unilateral Valvular Incomp Study (05/08/2013 9:31 AM EDT) Component Value Ref Test Analysis Performed At [facility] Roombeats Range Method Time Signature VB Text VASCUBASE Report Department: Vascular Surgery Lab Patient: [id number] (PABLO LEWIS) CPT Code: 81446 ICD-9: 459.81 Referring Physician: EUGENIA SANTOS Indication: [...] ankle. There is a 5.2 mm incompetent activities attendant near the superior, anterior margin of the [...] veins documented in this encounter Care Teams Counseling Case Manager Relationship Specialty Start Date End Date Duane Edwards DO PCP - General 10/11/12 03/12/15 [address] [place] [id number] documented as of this encounter
--- OUTSIDE RECORDS SUMMARY | 2022-07-07 15:24 | XMS_ITS | Encounter Summary ---
:1975 [place] [address] Care Team Providers Name Role Phone Duane Edwards DO Primary Care Provider Encounter Details Date Type Department Care Team Description 07/13/2013 Hospital Encounter Same Day Program at [facility], Varicose veins Ranjana Garland MD [facility] DR Garcia [place] [address] [place] [address] [phone] Social History Tobacco Use Types Packs/Day Years [...] Sign Reading Time Taken Comments Blood Pressure 141/70 07/13/2013 12:18 PM EST Pulse 83 07/13/2013 12:18 PM EST Temperature 36.2 ??C (97.2 ??F) 07/13/2013 10:26 AM EST Respiratory Rate 18 07/13/2013 12:18 PM EST Oxygen Saturation 95% 07/13/2013 12:18 PM EST Inhaled Oxygen Concentration - - Weight 146.1 kg (322 lb) 07/13/2013 7:05 AM EST Height 182.9 cm (6') 07/13/2013 7:05 AM EST Body Mass Index 43.67 07/13/2013 7:05 AM EST documented in this encounter Discharge Instructions Patient InstructionsBob Molina MD - 07/13/2013 8:19 AM EST You underwent varicose vein removal to your left leg today. Wound: You should keep your RIGHT leg ELLE wrapped for 48 hours. On Tuesday you may take the dressing down and shower and rewrap your leg as needed or resume your use of compression stockings. Your incisions are covered with steristrips. The steristrips will fall off on their own in the course of days to weeks in the shower. Shower/Bath: OK to shower, wash with soap and water, and pat dry; avoid bathing or swimming for 2 weeks until incisions well healed. Diet: resume regular diet. Activity: As tolerated, OK to walk and climb stairs. When you are not walking or standing on your feet, try to keep your left leg elevated to a level above your nose for the first few days. Elevating your leg will help with the pain and swelling. Driving: none while on narcotic pain meds; may resume when leg feeling well. We will see you in clinic in 2-3 weeks; an appointment will be mailed to you but if you do not receive it, or have other questions please call [phone] as your followup is very important to us. documented in this encounter Medications at Time of Discharge Medication Sig Dispensed Refills Start Date End Date levothyroxine (SYNTHROID) Take 200 mcg by 0 200 mcg tablet mouth daily. documented as of this encounter Progress Notes Christi Luevano RN - 07/13/2013 10:42 AM EST Pt c/o nausea Phenergan given by Herman Hernandez as per order by residential care facility manager. Right leg elevated on a pillow. Vomited clear secretions. Cold cloths to forehead and back of neck. Fluid bolus/paged Dr. Christi Smith. Fentanyl given for c/o leg pain. Dr. Haywood was just here. Dr. Smith called here. ''Okay to give fluid bolus. 500 normal saline. Pt given instructions with friend at side. No c/o nausea at this time. Out of bed. Positive void. Duane Haywood MD - 07/13/2013 8:44 AM EST Vascular Attending Note I interviewed and examined Ms. Lewis this morning. She has had no cardiac or pulmonary symptoms. I reviewed indications, risks and benefits of RIGHT lower extremity VNUS and stab phlebectomy. She understands and wants to proceed. Duane Haywood M.D. Section of Vascular Surgery documented in this encounter H&P Notes Bob Molina MD - 07/10/2013 2:16 PM EST There have been no interval changes to history of present illness, past medical history, medication,allergies, physical exam or radiographs from the time of the last visit and note that would change our plans to proceed to the operating room. HPI:Ms. Lewis has a combination of deep and superficial venous incompetence with advanced chronic venous insufficiency skin change just above her malleolus. The superficial venous incompetence can be treated with radiofrequency ligation, and that should help substantially, A/p: Proceed with RIGHT lower extremity radiofrequency GSV ablation and stab phlebectomies. documented in this encounter Miscellaneous Notes OR Attestation - Duane Haywood MD - 07/21/2013 9:23 PM EST Attestation: Case Date: 07/13/2013 I participated in Ms. Lewis's case from start to finish, and I supervised Dr. Molina throughout. DUANE HAYWOOD MD 07/21/2013 Miscellaneous - Provider, Scanning - 07/13/2013 5:08 PM EST Miscellaneous - Provider, Scanning - 07/13/2013 5:08 PM EST Miscellaneous - Provider, Scanning - 07/13/2013 1:30 PM EST Brief Op Note - Bob Molina MD - 07/13/2013 10:29 AM EST .Brief Operative Note Patient Name: Noman Lewis : [id number] MR#: [id number] Case Date: 07/13/2013 Surgeon: Surgeon(s) and Role: * Duane Haywood MD - Primary * Bob Molina MD - Resident-Surgeon Marvel Preoperative diagnosis: varicose veins Postoperative diagnosis: varicose veins Procedure(s): VNUS CLOSURE (MSURG) STAB PHLEBECTOMY OF VARICOSE VEINS, ONE EXTREMITY Anesthesia: General Findings: Right VNUS, seven stab avulsions Complications: none Fluids: 800ml LR Estimated Blood Loss: 25cc Drains: none Disposition: awakened from anesthesia, extubated and taken to the recovery room in a stable condition, having suffered no apparent untoward event. Condition: doing well without problems Op Note - Bob Molina MD - 07/10/2013 2:19 PM EST Operative Note Patient Name: Noman Lewis : [id number] MR#: [id number] Case Date: 07/13/2013 Surgeon: Surgeon(s) and Role: * Duane Haywood MD - Primary * Bob Molina MD - Resident-Surgeon Marvel Preoperative diagnosis: varicose veins Postoperative diagnosis: varicose veins Procedure(s): VNUS CLOSURE (MSURG) STAB PHLEBECTOMY OF VARICOSE VEINS, ONE EXTREMITY Hpi: Ms. Lewis has a combination of deep and superficial venous incompetence with advanced chronic venous insufficiency skin change just above her malleolus. The superficial venous incompetence can be treated with radiofrequency ligation, and that should help substantially. Op note: After informed consent was obtained, the patient was marked and brought to the OR. She was placed inthe supine position, underwent general endotracheal intubation and the right leg was prepped and draped in normal sterile fashion. A timeout was performed and all of the OR staff was in agreement. The course of the RIGHT greater saphenous vein was mapped out under US guidance from the saphenofemoral junction to the distal thigh. Percutaneous access was secured to the distal GSV just proximal to the knee via micropuncture technique under ultrasound guidance. This was then up-sized to a 7F sheathover a .015 glide wire using seldinger technique. The wire was advanced to the GSV under US guidance. The VNUS catheter was then advanced over the wire up to the saphenofemoral junction. The VNUS catheter was then retracted 2 cm, so that ablation would begin 2cm from the saphenofemoral junction. The wire was removed and the course of the GSV was tumesced with a lidocaine/epinephrine soution in sterile saline. The GSV was then sequentially ablated. Seven stab incisions were made on the right leg. One of the varicosities led us to the GSV in the mid calf. The GSV was transected after proximal and distal clamps. Each end tied ligated with 3-0 vicryl ties. The skin incisions were re approximated with steristrips after cleaning the leg with a wet cloth. The leg was then wrapped with kerlex bandage and covered with elle bandage from the foot to the upper thigh. The patient was awakened from anesthesia without event. All counts were correct. documented in this encounter Plan of Treatment Not on filedocumented as of this encounter Procedures Procedure Name Priority Date/Time Associated Diagnosis Comme nts ([facility]) STAB PHLEBECTOMY Routine 07/13/2013 10:27 AM OF VARICOSE VEINS, ONE EST EXTREMITY (MSURG) STAB PHLEBECTOMY 07/13/2013 8:11 AM EST varico se veins OF VARICOSE VEINS, ONE EXTREMITY (WRVU *) ENDOVENOUS ABLATION 07/13/2013 8:11 AM EST varicose ve ins THERAPY OF INCOMPETENT VEIN, EXTREMITY, FIRST VEIN (WRVU 5.3) documented in this encounter Results Duplex for DVT, Leg, Unilat (07/16/2013 11:26 AM EST) Component Value Ref Test Analysis Performed At [facility] Range Method Time Signature VB Text VASCUBASE Report Department: Vascular Surgery Lab Patient: [id number] (NOMAN LEWIS) CPT Code: 33048 ICD-9: 459.81 Referring Physician: DUANE HAYWOOD Indication: s/p right VNUS ablation ICD9 Diagnosis Code: 459.81 Findings: RIGHT: Patent SFJ, epigastri c and anterior accessory saphenous vein. The GSV is partially occluded throughou t the thigh with several patent perforators. ??Patent common femoral vein and popliteal vein w ith spontaneous, respirophasic Doppler waveforms that respond normally to augmentation maneuvers. The common femoral vein, saphenofemoral junctio n, femoral vein through the thigh and popliteal vein are fully compressible. Interpretation: RIGHT: ??No evidence of lower extremity deep venous thromb osis. ??Partially occluded GSV throughout the thigh s/p ablation. Interpretation: RIGHT: No evidence of lower extremity deep venous thrombosis . Partially occluded GSV throughout the thigh s/p ablation. ?%> <%?%> Electronically Signed by: DUNAE HAYWOOD on 2013-07-21 10:36: 02 PM VB Text End of Report VASCUBASE Report Specimen (Source) Anatomical Collection Method Collection Time Re ceived Time Location / / Volume Laterality 07/16/2013 11:26 AM EST Duane [facility]wood MD VASCULAR ORDERABLES Performing Organization Address City/State/ZIP Code Phon e Number VASCUBASE documented in this encounter Visit Diagnoses Diagnosis Varicose veins Asymptomatic varicose veins documented in this encounter Administered Medications Inactive Administered Medications - up to 3 most recent administrations Medication Order MAR Action Action Date Dose Rate Site acetaminophen (TYLENOL) tablet Given 07/13/2013 12:17 PM EST 650 mg 650 mg 650 mg, Oral, EVERY 4 HOURS PRN, Starting on Tue07/13/13 at 1039, Until Tue07/13/13 at 1549, Pain, Maximum dose of acetaminophen is 4000 mg from all sources in 24 hours., Routine aspirin chewable tablet 81 mg Given 07/13/2013 7:11 AM EST 81 mg 81 mg, Oral, ONCE PRN, 1 dose, Starting on Tue07/13/13 at 0704, Until Tue07/13/13 at 0711, If not already taken on day of surgery., Day of Surgery (Day of Procedure), Routine fentaNYL 50mcg/mL injection Given 07/13/2013 12:03 PM EST 25 mcg 25-50 mcg, Intravenous, EVERY 5 MIN PRN, Starting on Tue07/13/13 at 1110, Until Tue07/13/13 at 1549, Pain, for breakthrough pain, Hold for respiratory rate less than 10 per minute. Maximum dose: 250 mcg over one hour., PACU Recovery, Routine Given 07/13/2013 11:24 AM EST 25 mcg Given 07/13/2013 11:20 AM EST 25 mcg HYDROmorphone (DILAUDID) tablet 2 mg Given 07/13/2013 12:17 PM EST 2 mg 2 mg, Oral, EVERY 4 HOURS PRN, Starting on Tue07/13/13 at 1039, Until Tue07/13/13 at 1549, Pain, Routine lactated ringers infusion 1,000 New Bag 07/13/2013 7:22 AM EST 1,000 mLs 100 mL/hr mL 1,000 mL, at 100 mL/hr, Intravenous, CONTINUOUS, Starting on Tue07/13/13 at 0800, Until Tue07/13/13 at 1549, Day of Surgery (Day of Procedure) prochlorperazine (COMPAZINE) injection 5 mg Given 07/13/2013 12:01 PM EST 5 mg 5 mg, Intravenous, EVERY 30 MIN PRN, 2 doses, Starting on Tue07/13/13 at 1110, Until Tue07/13/13 at 1549, Nausea, May repeat 5 mg once in 30 minutes. Call physician if ineffective., PACU Recovery, Routine promethazine (PHENERGAN) 25 mg/mL inject ion 1 dose, Starting on Tue07/13/13 at 1027, Until Tue07/13/13 at 1030, HERMAN CONVERSE: cabinet override promethazine (PHENERGAN) injection 6.25 mg Given 07/13/2013 10:30 AM EST 6.25 mg 6.25 mg, Intravenous, ONCE PRN, 1 dose, Starting on Tue07/13/13 at 1157, Until Tue07/13/13 at 1030, Nausea, Dilute in 20 mL sodium chloride 0.9% and administer through a free flowing IV. Usual dose range 0.25-0.5 mg/kg/dose to a maximum of 25 mg/dose, PACU Recovery, Routine sodium chloride 0.9 % flush 5 mL Given 07/13/2013 7:22 AM EST 5 mLs 5 mL, Intravenous, EVERY 12 HOURS, First dose on Tue07/13/13 at 0730, Until Discontinued, Day of Surgery (Day of Procedure), Routine documented in this encounter Active and Recently Administered Medications Times are shown in EST. Scheduled Medication Order 07/11/2013 07/12/2013 07/13/2013 sodium chloride 0.9 % flush 5 mL (CANCELED) 0722 (Given - Provider: Rachele Finch RN) 5 mL, Intravenous, EVERY 12 HOURS, First dose on Tue07/13/13 at 0730, Until Discontinued, Day of Surgery (Day of Procedure), Routine Continuous Medication Order 07/11/2013 07/12/2013 07/13/2013 lactated ringers infusion 1,000 mL (CANCELED) 0722 (New Bag - Provider: Rachele Finch RN) 1,000 mL, at 100 mL/hr, Intravenous, CON TINUOUS, Starting Tue07/13/13 at 0800, Until Tue07/13/13 at 1549, Day of Surgery (Day of Procedure) PRN Medication Order 07/11/2013 07/12/2013 07/13/2013 acetaminophen (TYLENOL) tablet 650 mg (CANCELED) 1217 (Given - Provider: Herman Hernandez RN) 650 mg, Oral, EVERY 4 HOURS PRN, Startin g Tue07/13/13 at 1039, Until Tue07/13/13 at 1549, Pain, Maximum dose of acetaminophen is 4000 mg from all sources in 24 hours., Routine aspirin chewable tablet 81 mg (COMPLETED) 0711 (Given - Provider: Rachele Finch RN) 81 mg, Oral, ONCE PRN, 1 dose, Starting Tue07/13/13 at 0704, Until Tue07/13/13 at 0711, If not already taken on day of surgery., Day of Surgery (Day of Procedure), Routine fentaNYL 50mcg/mL injection (CANCELED) 1113 (Given - Provider: Christi Luevano, LEONCIO)1120 (Given - Provider: Christi Luevano, LEONCIO)1124 (Given - Provider: Christi Luevano RN)1203 (Given - Provider: Herman Hernandez, LEONCIO) 25-50 mcg, Intravenous, EVERY 5 MIN PRN, Starting Tue07/13/13 at 1110, Until Tue07/13/13 at 1549, Pain, for breakthrough pain, Hold for respiratory rate less than 10 per minute. Maximum dose: 250 mcg over one hour., PACU Recovery, Routine HYDROmorphone (DILAUDID) tablet 2 mg 1217 (Given - Provider: Herman Hernandez, LEONCIO) 2 mg, Oral, EVERY 4 HOURS PRN, Starting Tue07/13/13 at 1039, Until Tue07/13/13 at 1549, Pain, Routine prochlorperazine (COMPAZINE) injection 5 mg (CANCELED) 1201 (Given - Provider: Herman Hernandez, LEONCIO) 5 mg, Intravenous, EVERY 30 MIN PRN, 2 d oses, Starting Tue07/13/13 at 1110, Until Tue07/13/13 at 1549, Nausea, May repeat 5 mg once in 30 minutes. Call physician if ineffective., PACU Recovery, Routine promethazine (PHENERGAN) injection 6.25 mg (COMPLETED) 1030 (Given - Provider: Herman Hernandez, LEONCIO) 6.25 mg, Intravenous, ONCE PRN, 1 dose, Starting on Tue07/13/13 at 1157, Until Tue07/13/13 at 1030, Nausea, Dilute in 20 mL sodium chloride 0.9% and administer through a free flowing IV. Usual dose rang e 0.25-0.5 mg/kg/dose to a maximum of 25 mg/dose, PACU Recovery, Routine documented in this encounter Care Teams Flight Inspector Relationship Specialty Start Date End Date Duane Edwards DO PCP - General 10/11/12 03/12/15 [address] [place] [id number] documented as of this encounter
--- OUTSIDE RECORDS SUMMARY | 2022-07-07 15:24 | XMS_ITS | Encounter Summary ---
:1975 Author Organization [facility] [address] Care Team Providers Name Role Phone Katarina James Adiel HOLM Primary Care Provider Reason for Visit Reason Comments Joint Swelling R elbow pain workers comp Encounter Details Date Type Department Care Team Description 03/19/2015 Office Visit [place]opaed[place] [facility] [place] Lateral [facility] Kev Fung MD epicondylitis/tennis Drive [facility], [place] [address] [place] [address] ORTHOPAEDIC SURGERY [place] [address] Social History Tobacco Use Types Packs/Day Years [...] Sign Reading Time Taken Comments Blood Pressure 126/76 03/19/2015 8:10 AM EDT Pulse 76 03/19/2015 8:10 AM EDT Temperature - - Respiratory Rate - - Oxygen Saturation - - Inhaled Oxygen Concentration - - Weight 122.5 kg (270 lb) 03/19/2015 8:10 AM EDT pt repo rted Height 182.9 cm (6') 03/19/2015 8:10 AM EDT pt report ed Body Mass Index 36.62 03/19/2015 8:10 AM EDT documented in this encounter Progress Notes Kev Anderson MD - 03/19/2015 8:17 AM EDT This 39 yo white female presents with chronic R elbow pain - 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 [employer] and she developed chronic lateral elbow pain [...] long finger NV check WNL We had plain x Rays of the elbow which show no major bony abnormality A: Chronic lateral epicondylitis Plan We will proceed with an MRI and I will see her back with the test in hand Continue with Mobic and the Volatren gel as well as PT Continue same work restrictions Will try a neoprene elbow sleeve documented in this encounter Miscellaneous Notes Addendum Note - Kev Anderson MD - 03/19/2015 9:20 AM EDT Addended by: KEV ANDERSON on: 03/19/2015 09:20 AM Modules accepted: Orders documented in this encounter Plan of Treatment Not on filedocumented as of this encounter Results MRI elbow WO contrast [...] carpi radialis longus. 2. Intact tendons. Kev Anderson MD IMG MRI ORDERABLES XR elbow 3 view complete (03/19/2015 8:39 [...] and interpretation reviewed by the attending Kev Anderson MD IMG DX ORDERABLES documented in this encounter Visit Diagnoses Diagnosis Lateral epicondylitis/tennis elbow, righ t Lateral epicondylitis/tennis elbow, righ t Lateral epicondylitis/tennis elbow, righ t documented in this encounter Care Teams Doping Supervisor Relationship Specialty Start Date End Date Katarina James, MIHAI PCP - General 03/13/15 documented as of this encounter
--- OUTSIDE RECORDS SUMMARY | 2022-07-07 15:24 | XMS_ITS | Encounter Summary ---
:1975 [place] [address] Care Team Providers Name Role Phone Duane Edwards Primary Care Provider Encounter Details Date Type Department Care Team Description 07/13/2013 Surgery Main Operating Room Primo Haywood MD ENDOVENOUS ABLATION [facility] DR ARELLANO, EXTREMITY, [facility] VASCULAR SURG JOY VEIN (WRVU 5.3) [place] [id number] [place] [phone] Social History Tobacco Use Types Packs/Day Years [...] Sign Reading Time Taken Comments Blood Pressure 133/71 07/13/2013 10:45 AM EST Pulse 89 07/13/2013 10:45 AM EST Temperature 36.2 ??C (97.2 ??F) 07/13/2013 10:26 AM EST Respiratory Rate 16 07/13/2013 10:45 AM EST Oxygen Saturation 97% 07/13/2013 10:45 AM EST Inhaled Oxygen Concentration - - Weight [...] it, or have other questions please call [phone] as your followup is very important to [...] Herman Hernandez as per order by residential aide. Right leg elevated on a pillow. Vomited [...] throughout. DUANE HAYWOOD MD 07/21/2013 Miscellaneous - Yulisa Jon - 07/13/2013 5:08 PM EST Miscellaneous - Provider, Scanning - 07/13/2013 5:08 PM EST Miscellaneous - Provider, Scanning - 07/13/2013 1:30 PM EST Brief Op Note - Bob Molina MD - 07/13/2013 10:29 AM EST .Brief Operative Note Patient Name: Noman Lewis DOB: [id number] MR#: [id number] Case Date: 07/13/2013 Surgeon: Surgeon(s) and Role: [...] Operative Note Patient Name: Noman Lewis : [id number] MR#: [id number] Case Date: 07/13/2013 Surgeon: Surgeon(s) and Role: [...] Name Priority Date/Time Associated Diagnosis Comme nts (MSURG) STAB PHLEBECTOMY Routine 07/13/2013 10:27 AM OF [...] Component Value Ref Test Analysis Performed At [facility] Range Method Time Signature VB Text VASCUBASE Report Department: Vascular Surgery Lab Patient: [id number] (NOMAN LEWIS) CPT Code: 04125 ICD-9: 459.81 Referring Physician: DUANE HAYWOOD Indication: [...] s/p ablation. ?%> <%?%> Electronically Signed by: DUANE HAYWOOD on 2013-07-21 10:36: 02 PM VB Text End of Report VASCUBASE Report Specimen (Source) Anatomical Collection Method Collection Time Re ceived Time Location / / Volume Laterality 07/16/2013 11:26 AM EST Duane Haywood MD VASCULAR ORDERABLES Performing Organization Address City/State/ZIP Code Phon e Number VASCUBASE documented in this encounter Visit Diagnoses Not on filedocumented in this encounter Administered Medications Inactive Administered [...] chloride 0.9 % flush 5 mL (CANCELED) 07 (Given - Provider: Rachele Finch, LEONCIO) 5 mL, Intravenous, EVERY 12 HOURS, First dose on Tue07/13/13 at 0730, Until Discontinued, Day of Surgery (Day of Procedure), Routine Continuous Medication Order 07/11/2013 07/12/2013 07/13/2013 lactated ringers infusion 1,000 mL (CANCELED) 07 (New Bag - Provider: Rachele Finch, LEONCIO) 1,000 mL, at 100 mL/hr, Intravenous, CON [...] mg (COMPLETED) 0711 (Given - Provider: Rachele Finch, LEONCIO) 81 mg, Oral, ONCE PRN, 1 dose, Starting Tue07/13/13 at 0704, Until Tue07/13/13 at 0711, If not already taken on day of surgery., Day of Surgery (Day of Procedure), Routine fentaNYL 50mcg/mL injection (CANCELED) 1113 (Given - Provider: Christi Luevano, LEONCIO)1120 (Given - Provider: Christi Luevano, RN)1124 (Given - Provider: Christi Luevano RN)1203 (Given [...] Routine documented in this encounter Care Teams Appliance Counselor Relationship Specialty Start Date End Date Duane Edwards DO PCP - General 10/11/12 03/12/15 [address] [place] [id number] documented as of this encounter
--- OUTSIDE RECORDS SUMMARY | 2022-07-07 15:24 | XMS_ITS | Clinical Summary ---
:1975 Author Organization [facility] [place] [address] Care Team Providers Name Role Phone Katarina James APRN Primary Care Provider Allergies Active Allergy Reactions Severity Noted Date Comments Codeine Other (See Comments) High 05/08/2013 Severe reaction as child almost Morphine Nausea And Vomiting Medium 03/19/2015 Sulfa (Sulfonamide Rash 05/08/2013 Antibiotics) Medications Medication Sig Dispensed Refills Start Date End Date Status levothyroxine Take 200 mcg by 0 Active (SYNTHROID) 200 mcg mouth daily. tablet meloxicam (MOBIC) 7.5 Take 7.5 mg by 0 Active mg Tablet mouth 2 times daily. diclofenac 1 % Gel Apply 2 g 0 A ctive topically 4 times daily. diclofenac-misoprostol Take 1 tablet by 15 tablet 2 04/02/2015 Active (ARTHROTEC 75) 75-200 mouth 2 times mg-mcg Tab,IR & Delay daily (with Rel,MultiphasicIndicat meals). ions: Lateral epicondylitis/tennis elbow, left Active Problems Problem Noted Date Venous insufficiency 06/12/2013 Varicose veins 10/13/2012 Overview: s/p R VNUS and stab phlebectomy 07/10/13 HLD (hyperlipidemia) 10/13/2012 Depression 10/13/2012 Hypothyroidism 10/13/2012 Obesity 10/13/2012 Family History Medical History Relation Comments Diabetes Brother Diabetes Father Diabetes Maternal Grandmother Diabetes Mother Cancer Paternal Grandmother Diabetes Paternal Grandmother Relation Status Comments Brother Father Maternal Grandmother Mother Paternal Grandmother Social History Tobacco Use Types Packs/Day Years [...] Assigned at Date Recorded Not on file Last Filed Vital Signs Vital Sign Reading Time Taken Comments Blood Pressure 127/69 04/02/2015 3:47 PM EDT Pulse 80 04/02/2015 3:47 PM EDT Temperature 36.2 ??C (97.2 ??F) 07/13/2013 10:26 AM EST Respiratory Rate 18 07/13/2013 12:18 PM EST Oxygen Saturation 95% 07/13/2013 12:18 PM EST Inhaled Oxygen Concentration - - Weight 123.8 kg (273 lb) 04/02/2015 3:47 PM EDT pt repo rted Height 182.9 cm (6') 04/02/2015 3:47 PM EDT pt report ed Body Mass Index 37.03 04/02/2015 3:47 PM EDT Plan of Treatment Health Maintenance Due Date Last Done Comments Covid-19 Vaccine (#1) 1975 HIV screen 1994 Hepatitis C Screening 1994 Tdap adult 1995 Tetanus vaccine 1995 HPV test 2006 PAP Smear 2006 Breast Cancer Share Decision Needed 2016 Colonoscopy 2021 Influenza (Flu) vaccine (1 of 1 - Influenza standard 05/06/2022 series) Care Teams Ebay Reseller Relationship Specialty Start Date End Date Katarina James APRN PCP - General 03/13/15
--- OUTSIDE RECORDS SUMMARY | 2022-07-07 15:24 | XMS_ITS | Encounter Summary ---
:1975 Author Organization [place] [address] Care Team Providers Name Role Phone Evan Edwards DO Primary Care Provider Encounter Details Date Type Department Care Team Description 07/03/2013 Clinical Support Same Day at [facility] [place] [phone] Social History Tobacco Use Types Packs/Day [...] Sign Reading Time Taken Comments Blood Pressure - - Pulse 84 07/03/2013 9:46 AM EDT Temperature - - Respiratory Rate - - Oxygen Saturation 100% 07/03/2013 9:46 AM EDT Inhaled Oxygen Concentration - - Weight 146.1 kg (322 lb) 07/03/2013 9:46 AM EDT Height 182.9 cm (6') 07/03/2013 9:46 AM EDT Body Mass Index 43.67 07/03/2013 9:46 AM EDT documented in this encounter Plan of Treatment Not on filedocumented as of this encounter Visit Diagnoses Not on filedocumented in this encounter Care Teams General Maintenance Mechanic Relationship Specialty Start Date End Date Evan Edwards DO PCP - General 10/11/12 03/12/15 [address] [place] [phone] documented as of this encounter
--- OUTSIDE RECORDS SUMMARY | 2022-07-07 15:24 | XMS_ITS | Encounter Summary ---
:1975 [place] [address] Care Team Providers Name Role Phone Evan Edwrads DO Primary Care Provider Encounter Details Date Type Department Care Team Description 07/13/2013 Anesthesia Event Main Operating Room Ulices Estrada MD [facility] [address] [place] [address] [facility] Domingo Smith MD [facility] [address] [place] [address] [place] [address] Anesthesia Record Procedure Summary Procedure Name [...] Out 1034 an stop data 1034 Stop Name Total Midazolam 2 mg fentaNYL 250 mcg Propofol 200 mg PHENYLephrine 240 mcg ePHEDrine 10 mg Dexamethasone 8 mg ceFAZolin 2 g Succinylcholine 120 mg ketorolac (Toradol) (30 mg/mL) injection 30 mg Lactated Ringers 800 mL Agents Name O2 Air N2O Sevoflurane (et) Blood No blood administrations on file. Lines, Drains, and Airways Type Details Placement Removal PIV 07/13/13; 1313 07/13/13 0843 by 07/13/13 1313 b y Siomara Luevano, RN (RETIRED) Non-Surgical Mask Ventilation: 07/13/13 0843 by 1015 by Airway Adjunct (2); ETT Ulices Miranda MD Type: Cuffed, Oral; ETT Size: 7 mm Incision 07/13/13; 0904; calf 07/13/13 0904 by 07/13/13 1 313 by (right lower leg Ventura Rabago, Christi Luevano multiple small stab RN M, RN incisions); 07/13/13; 1313 documented in this [...] on file documented as of this encounter OR Notes Anesthesia Postprocedure Evaluation - Domingo Smith - 07/13/2013 1:52 PM EST Patient: Noman Lewis Procedure(s) Performed: Procedure(s): VNUS CLOSURE (MSURG) STAB PHLEBECTOMY OF VARICOSE VEINS, ONE EXTREMITY Actual Anesthetic: general Patient location: Same day post op Post-op pain: Adequate analgesia Post-op nausea: no nausea or vomiting and nausea or vomiting an issue but being treated with medication Last Vitals: Filed Vitals: 07/13/13 1218 BP: 141/70 Pulse: 83 Temp: Resp: 18 Post-op cardiovascular and respiratory status: is stable Level of consciousness: awake, alert and oriented Complications: no apparent complications and tolerated the procedure well Fluid Status: normal Anesthesia Preprocedure Evaluation - Ulices Miranda MD - 07/03/2013 10:56 AM EDT Pre-Anesthesia Evaluation for: Noman Lewis a 38 y.o. female. Procedure(s): VNUS CLOSURE STAB PHLEBECTOMY IVAN VEINS 1 EXTREMITY 10-20 INCISIONS Patient Active Problem List Diagnosis ??? Venous insufficiency ??? Varicose veins ??? HLD (hyperlipidemia) ??? Depression ??? Hypothyroidism ??? Obesity Past Medical History Diagnosis Date ??? Varicose veins 10/13/2012 ??? HLD (hyperlipidemia) 10/13/2012 ??? Depression 10/13/2012 ??? Hypothyroidism 10/13/2012 ??? Obesity 10/13/2012 ??? Venous insufficiency 06/12/2013 No past surgical history on file. History Substance Use Topics ??? Smoking status: Former Smoker ??? Smokeless tobacco: Not on file ??? Alcohol Use: occasional/ bi weekly History Drug Use ??? Yes ??? Special: Marijuana sometimes Allergies Allergen Reactions ??? Codeine Other (See Comments) Severe reaction as child almost ??? Sulfa (Sulfonamide Antibiotics) Rash Medications: MAR and/or home medications have been reviewed. Physical Exam: There were no vitals filed for this visit. There is no height or weight on file to calculate BMI. Airway Assessment: Mallampati: II TM distance: >3 FB Neck ROM: full Cardiovascular Assessment: Pulmonary Assessment: Dental Assessment: Misc Assessment: Anesthesia Plan: ASA 2 general, with a(n) intravenous induction 38 yo female with a PMH of varicose veins, hyperlipidemia, obesity, and hypothyroidism seen in PAT to evaluate if appropriate for the [facility] for her VNUS closure and stab phlebectomy. Pt's only other GA was for a tonsillectomy as a child, but she denies any complications. Pt has a good functional capacity and denies chest pain or shortness of breath. She does admit to daytime tiredness, attributes this to awakening at 2 am every day for work. She denies snoring or othersymptoms of ROSA ELENA. On exam, patient has a long neck, good range of motion, a wide mouth opening and and MP of II. She has no contraindications to surgery at the [facility]. aCryl Hurst PA-C Pre-Admission Testing Pager [phone] Patient is a 38 yo female presenting for stab phlebectomy. She has a PMHx significant for obesity. Depression, and HLD. She has denied ROSA ELENA symptoms as above. She has good exercise tolerance and is fairly active. Plan for GA with LMA vs ETT. History of sedation and possibly bradycardia with previous cough medicine. The reaction was self limited. Pt did not have to seek medical attention, but phone consult with MD attributed to codeine. Pt is willing to try low dose synthetic opioid titration before GA to assess for symptoms. Region - Other Informed Consent: Plan discussed with [place] [facility]: documented in this encounter Plan of Treatment Not on filedocumented as of this encounter Visit Diagnoses Not on filedocumented in this encounter Administered Medications Inactive Administered Medications - up to 3 most recent administrations Medication Order MAR Action Action Date Dose Rate Site ceFAZolin (ANCEF) 1g in dextrose 5% Given 07/13/2013 8:35 AM EST 2 g 50mL PRN, Starting on Tue07/13/13 at 0835, Until Tue07/13/13 at 1034, Administer over 30 Minutes, Anesthesia Intra-op dexamethasone (DECADRON) injection Given 07/13/2013 8:30 AM EST 8 mg PRN, Starting on Tue07/13/13 at 0830, Until Tue07/13/13 at 1034, Anesthesia Intra-op, Routine ePHEDrine Sulfate in sodium chloride 0.9% (PF) Given 1 09/12/2012 9:32 AM EST 10 mg 50 mg/10 mL (5 mg/mL) injection Syrg PRN, Starting on Tue07/13/13 at 0932, Until Tue07/13/13 at 1034, Anesthesia Intra-op fentaNYL 50mcg/mL injection Given 07/13/2013 9:28 AM EST 50 mcg PRN, Starting on Tue07/13/13 at 0832, Until Tue07/13/13 at 1034, Pain, Anesthesia Intra-op, Routine Given 07/13/2013 8:32 AM EST 50 mcg Given 07/13/2013 8:29 AM EST 100 mcg ketorolac (TORADOL) injection Given 07/13/2013 10:30 AM EST 30 mg PRN, Starting on Tue07/13/13 at 1030, Until Tue07/13/13 at 1534, Pain, Anesthesia Intra-op, Routine lactated ringers infusion New Bag 07/13/2013 8:23 AM EST mL CONTINUOUS PRN, Starting on Tue07/13/13 at 0823, Until Tue07/13/13 at 1034, Anesthesia Intra-op midazolam (VERSED) injection Given 07/13/2013 8:23 AM EST 2 mg PRN, Starting on Tue07/13/13 at 0823, Until Tue07/13/13 at 1034, Sleep, Anesthesia Intra-op, Routine PHENYLephrine HCl in NS (PF) (BEATRIZ-SYNEPHRINE) Given 9:18 AM EST 80 mcg 0.8 mg/10 mL (80 mcg/mL) injection Syrg PRN, Starting on Tue07/13/13 at 0914, Until Tue07/13/13 at 1034, Anesthesia Intra-op, Routine Given 07/13/2013 9:14 AM EST 160 mcg propofol (DIPRIVAN) 10 mg/mL bolus injection Given 04/2013 8:33 AM EST 200 mg (Anesthesia) PRN, Starting on Tue07/13/13 at 0833, Until Tue07/13/13 at 1034, Anesthesia Intra-op succinylcholine (ANECTINE) injection Given 07/13/2013 8:34 AM EST 120 mg PRN, Starting on Tue07/13/13 at 0834, Until Tue07/13/13 at 1034, Anesthesia Intra-op, Routine documented in this encounter Care Teams Balloon Artist Relationship Specialty Start Date End Date Evan Edwards DO PCP - General 10/11/12 03/12/15 [address] [place] [phone] documented as of this encounter
--- OUTSIDE RECORDS SUMMARY | 2022-07-07 15:24 | XMS_ITS | Encounter Summary ---
:1975 Author Organization [facility] [place] [address] Care Team Providers Name Role Phone Jerry Duane Michelle BARILLAS Primary Care Provider Encounter Details Date Type Department Care Team Description 07/16/2013 Ancillary Appointment Vascular Surgery at [facility] Varicose veins [facility] [place] [phone] Social History Tobacco Use Types Packs/Day Years [...] Name Priority Date/Time Associated Diagnosis Comme nts DUPLEX FOR DVT, Routine 07/16/2013 11:26 AM Varicose veins Res ults for this LEG, UNILAT EST procedure are i n the results section. documented in this encounter Results Duplex for DVT, Leg, Unilat (07/16/2013 11:26 AM EST) Component Value Ref Test Analysis Performed At [facility] Range Method Time Signature VB Text VASCUBASE Report Department: Vascular Surgery Lab Patient: [id number] (PABLO LEWIS) CPT Code: 03275 ICD-9: 459.81 Referring Physician: DUANE HAYWOOD Indication: [...] veins documented in this encounter Care Teams Bull Bucker Relationship Specialty Start Date End Date Duane Edwards DO PCP - General 10/11/12 03/12/15 [address] [place] [address] documented as of this encounter
--- OUTSIDE RECORDS SUMMARY | 2022-07-07 15:24 | XMS_ITS | Encounter Summary ---
:1975 Author Organization [facility] [address] Care Team Providers Name Role Phone Jerry Evan Martinez Primary Care Provider Encounter Details Date Type Department Care Team Description 07/31/2013 Office Visit Vascular Surgery at He[facility] Hargrove, [address] st-operative state (Primary Dx); [facility] Varicose veins [facility] [address] [place] [facility] [phone] [place] [address] [phone] Social History Tobacco Use Types Packs/Day Years [...] on file documented as of this encounter Progress Notes Heidy Hargrove APRN - 07/31/2013 8:29 AM EST Post op R VNUS and stab phlebectomy 07/10/13 C/o tingling inner thigh and painful incision lump medial calf which is improving. Denies fever, chills, swelling, SOB. She had problems with post op N/V. Right leg incisions healing. No infection. Medial calf with tender firm raised noninfected incision.+2 pedal pulse. No edema Assessment/Plan: 38 yo female s/p R VNUS and stab phlebectomy 07/10/13. Doing well. Healing well. RTCPRN documented in this encounter Plan of Treatment Not on filedocumented as of this encounter Visit Diagnoses Diagnosis Post-operative state - Primary Other postprocedural status Varicose veins Asymptomatic varicose veins documented in this encounter Care Teams Home And Family Living Professor Relationship Specialty Start Date End Date Evan Edwards DO PCP - General 10/11/12 03/12/[address] [place] [phone] documented as of this encounter
== END 2022-07-07 15:41 ==
LOC: DI 15:22
PROVIDERS: PCP Nurse Practitioner Family; Visit Provider Podiatrist Foot & Ankle Surgery
DX: G89.29 Other chronic pain (principal); M20.41 Other hammer toe(s) (acquired), right foot; M20.42 Other hammer toe(s) (acquired), left foot; M77.41 Metatarsalgia, right foot; M77.42 Metatarsalgia, left foot
CPT/HCPCS: 73630

== ENCOUNTER → 2022-07-26 01:22 | Outpatient (CLI) | payer BC, SELFPAY ==
--- NOTE | 2022-07-26 08:30 | DI.MAMMO_ITS ---
Exam(s) MAMMO SCREENING EXAM: MAMMO SCREENING CLINICAL HISTORY: screening,z12.39 TECHNIQUE: Mammograms were interpreted according to the usual protocol including computer analysis w [employer] CAD system, tomosynthesis and C-view imaging. COMPARISON: 2016 through 2019 FINDINGS: The breasts are composed of scattered fibroglandular densities, Breast Density category B. No suspicious masses or suspicious microcalcifications are seen. No skin thickening or abnormal axillary lymph nodes are seen. There has been no significant change from prior exams. IMPRESSION: BI-RADS Category 1, Negative mammogram Yearly screening mammography is recommended. Breast Density - Category B, scattered fibroglandular densities. A negative radiographic report should not delay biopsy if a dominant or clinically suspicious mass is present. Up to ten percent of cancers are not identified on mammography. A negative report may reinforce clinical impression. Adenosis and dense breasts may obscure an underlying neoplasm. False positive reports average 6 to 10%. Patient will receive a letter notifying them of these results.
== END ==
PROVIDERS: PCP Nurse Practitioner Family; Visit Provider Nurse Practitioner Family
DX: Z12.31 Encounter for screening mammogram for malignant neoplasm of breast (principal)
CPT/HCPCS: 77063; 77067

== ENCOUNTER 2022-09-20 16:15 | Outpatient (CLI) | payer BC, SELFPAY ==
--- NOTE | 2022-09-20 15:45 | DI.RAD_ITS ---
Exam(s) XR FOOT RT COMPLETE EXAM: XR FOOT RT COMPLETE CLINICAL HISTORY: R metatarsalgia, r/o stress fx M77.41 METATARSALGIA RT FOOT, M77.42 LEFT FO. TECHNIQUE: 2D digital imaging was performed of the right foot. Three images were obtained. AP, obl ique and lateral views were obtained. COMPARISON: CR XR FOOT RT COMPLETE from 07/07/2022 FINDINGS: BONES: No acute fracture is present. No bony destructive lesion is seen. There is a small plantar denise caneal spur and a posterior calcaneal enthesophyte. JOINTS: No dislocation present. Stable degenerative changes are seen in the foot. Hammertoe deformit ies are present. SOFT TISSUE: Normal. IMPRESSION: No acute abnormality. DATA REPOSITORY: RADIATION DOSE DELIVERED:
== END 2022-09-20 16:35 ==
LOC: DI 16:15
PROVIDERS: PCP Nurse Practitioner Family; Visit Provider Podiatrist Foot & Ankle Surgery
DX: M77.41 Metatarsalgia, right foot (principal); M77.42 Metatarsalgia, left foot
CPT/HCPCS: 73630

== ENCOUNTER 2023-05-10 02:30 | Outpatient (CLI) | payer BC, SELFPAY ==
[2023-05-10 09:17] LABS: Anion Gap 6.7 mmol/L (3-11); BUN 13 mg/dL (7-18); CO2 28.3 mmol/L (21.0-32.0); CREATININE 0.7 mg/dL (0.55-1.02); Calcium 8.7 mg/dL (8.5-10.1); Chloride 103 mmol/L (98-107); Estimated GFR 107.95 (mL/min/1.73m2); Glucose 96 mg/dL (74-106); Potassium 3.8 mmol/L (3.5-5.1); Sodium 138 mmol/L (136-145); TSH (W/Ref FT4) 0.44 uIU/mL (0.36-3.74)
[2023-05-11 10:37] LABS: Hepatitis C Ab w Rflx HCV PCR Negative (Negative)
[2023-05-11 11:07] LABS: HIV-1/2 Ag & Ab Screen Negative (Negative)
== END 2023-05-10 02:31 | disposition home or self-care (01) ==
LOC: LBO 02:30
PROVIDERS: PCP Nurse Practitioner Family; Visit Provider Nurse Practitioner Family
DX: E03.9 Hypothyroidism, unspecified (principal); Z11.59 Encounter for screening for other viral diseases; Z13.1 Encounter for screening for diabetes mellitus; Z11.4 Encounter for screening for human immunodeficiency virus [HIV]
CPT/HCPCS: 36415; 80048; 86803; 87389; 84443

== ENCOUNTER 2023-07-08 09:27 | Day surgery (SDC) | payer BC, SELFPAY ==
--- NOTE | 2023-07-07 17:05 | W.PM.DSUDISC ---
Date of service: 07/08/23 Time of Service: 14:02 Discharge Plan Disposition Patient Disposition: Home Condition: Good Discharge Details Reason For Visit: Screening colonoscopy Attending Provider: Addi [place] Primary Care Provider: Vimal Owen Home Meds and New Rx's Prescriptions: Continued escitalopram oxalate [Lexapro] 20 mg tablet 20 mg PO DAILY Qty: 90 3RF levothyroxine [Synthroid] 200 mcg tablet 200 mcg PO DAILY Qty: 90 3RF cholecalciferol (vitamin D3) 1,000 unit capsule 1,000 unit PO DAILY Qty: 90 3RF ibuprofen 200 mg capsule 200 mg PO Q6H PRN ESSENTIAL Daily 1 EACH tablet 1 ea PO DAILY Discontinued bisacodyl [Dulcolax (bisacodyl)] 5 mg tablet,delayed release (DR/EC) 5 mg PO ONCE Qty: 4 0RF Rx Instructions: Take per colonoscopy instructions provided by ordering providers office polyethylene glycol 3350 17 gram/dose powder 17 g PO ONCE Qty: 238 0RF Rx Instructions: Take per colonoscopy instructions provided by ordering providers office Discharge Instructions Instructions: Colorectal Polyps (GEN) Additional Instructions: Noman, we were able to complete your colonoscopy today without any problems. I did find 1 single polyp. I removed this completely. Once I have the pathology report describing the nature of the polyp I will be in touch with recommendations for your next colonoscopy. 1. If tolerated, consume a soft, low fiber diet for 1-2 days. 2[address] Do not drive, drink alcohol, operate machinery, make critical decisions, or do activities that require coordination or balance for 24 hours. 3. Because air was put into your colon during the procedure, expelling air from your rectum (passing gas or farting) is normal. 4. You may not have a bowel movement for 1-3 days because of the colonoscopy prep. This is normal. 5. Go directly to the emergency room if you notice any of the following: Develop chills (warm to touch), or if you have a thermometer and your temperature is above 101 Difficulty breathing or difficultly swallowing Persistent vomiting Severe abdominal pain, other than gas cramps Severe chest pain Black, tarry stools Any bleeding ? exceeding one tablespoon 6. Call your physician if the site where your intravenous was started becomes red, swollen, painful, and warm to touch. 7. Your physician has reviewed your pre-procedure medications. Please continue to take those medications as previously ordered. You will be given specific information/education regarding any changes to your medications before leaving. Activity:: Activity as Tolerated Diet:: As Tolerated Discharge Orders Discharge Orders: Discharge Order (Routine); Ordered 07/07/23 Ordered By: Addi [place] DS: Diagnosis Discharge Diagnosis (1) Screen for colon cancer: Status: Acute Asessment and Plan: Follow-up on polypectomy results
--- NOTE | 2023-07-07 17:07 | COLE_ITS ---
Date of service: 07/08/23 Time of Service: 14:03 Colonoscopy Report Date of procedure: 07/08/23 Pre-op diagnosis general: Screening colonoscopy Post-op diagnosis procedure note: other (Colon polyp) Procedure: Screening colonoscopy with polypectomy Surgeon: Addi [place] Anesthesia Type: General:No Airway Estimated blood loss (mL): 5 Pathology: other (Up at 18 cm) Complications: None Disposition: same day Indications: Noman is a 48-year-old woman who is here for her first screening colonoscopy Prep: Miralax/Dulcolax Procedure Start Time: 13:32 Procedure End Time: 13:51 Retraction Time: 13 Findings: 0.5 cm polyp at 20 cm from the anus Procedure Description: After the induction of monitored anesthetic care, and with the patient in left lateral decubitus position, I began by performing an external anorectal exam.? Perineum and skin were normal, as was the anal verge.? There was no not evidence of external hemorrhoids.? Next, I performed a digital rectal exam.? I did appreciate any abnormal findings.? Next, I advanced a colonoscope into the rectal vault.? I performed retroflexion.? This appeared normal.? Using insufflation, I then advanced the colonoscope beyond the rectal folds and into the sigmoid colon before advancing towards the cecum.? The quality of the prep was excellent.? The scope was noted to be in the cecum by identification of the ileocecal valve and appendiceal orifice.? I then began withdrawing the colonoscope using repeated irrigation as necessary for full evaluation of the colonic mucosa. Around eighteen 0.5 cm from the anal verge I identified a polyp. ?It appeared sessile in character. ?I was able to remove this with a cold forcep polypectomy. ?I examined the site, and there was minimal bleeding. ?Once this was completed, I continued to withdraw the scope and examine the remainder of the colonic mucosa.?Once the scope was withdrawn to the level of the rectum, great care was taken to examine portions of the rectal folds.? Finally, the scope was withdrawn and the patient was brought to the same-day surgery recovery unit as the anesthetic wore off. ?The findings and instructions were shared with the patient prior to discharge. [place] Bowel Prep West[place] Bowel Prep Right Colon: 2 Left Colon: 3 Transverse Colon: 3 Total Score: 8
[2023-07-08 10:21] VITALS: BP 141/87; PULSE 85; RESP 16; TEMP 37; O2SAT 98
[2023-07-08] MEDS: Lactated Ringers 1,000 ML 80 ML IV (10:44)
--- NOTE | 2023-07-08 11:28 | W.ANESPRE ---
General Info Date of Service Date Performed: 07/08/23 Height: 6 ft Weight: 127 kg Body Mass Index (BMI): 38.0 Surgical Procedure: Operation Date: 07/08/23 12:35 Proposed Procedure Side Surgeon soledad [place] MD Meds Allergies and Home Medications Allergies Allergy/AdvReac Type Severity Reaction Status Date / Time codeine AdvReac Severe bradycardia Verified 07/08/23 10:27 hydromorphone HCl AdvReac Intermediate hypotension/dizziness/room Verified 07/08/23 10:27 [From Dilaudid] spinning morphine AdvReac Intermediate makes her Verified 07/08/23 10:27 really sick Home Medication Medication Instructions Recorded [id number]-thvi-minerals 18 1 ea PO DAILY 07/28/15 mg-0.4 mg tablet (ESSENTIAL Daily) cholecalciferol (vitamin D3) 25 1,000 unit PO DAILY #90 caps 05/29/18 mcg (1,000 unit) capsule ibuprofen 200 mg capsule 200 mg PO Q6H PRN 05/03/23 escitalopram oxalate 20 mg tablet 20 mg PO DAILY #90 tabs 07/01/23 (Lexapro) levothyroxine 200 mcg tablet 200 mcg PO DAILY hypothyroidism 07/01/23 (Synthroid) #90 tab-caps Current Visit Medications: Current Medications Generic Name Dose Route Start Last Admin Trade Name Trayq PRN Reason Stop Dose Admin Hyoscyamine Sulfate 0.125 mg 07/07/23 17:08 Hyoscyamine 0.125 Mg Sl/Oral/Chew SL 08/06/23 17:07 DIRECTED PRN Ringer's Solution 1,000 mls @ 80 mls/hr 07/08/23 06:00 07/08/23 10:44 IV 08/06/23 23:59 80 mls/hr INFUSION QUINTON Administration IV Miscellaneous Supplies 1 each 07/08/23 06:00 Iv Access IV 08/06/23 23:59 DIRECTED QUINTON Ondansetron HCl 4 mg 07/07/23 17:08 Ondansetron 4 Mg/2 Ml Vial IVP 08/06/23 17:07 Q4H PRN PRN Nausea / Vomiting Sodium Chloride 0 ml 07/08/23 06:00 Normal Saline Flush 10 Ml Syr IV 08/06/23 23:59 PRN PRN Sodium Chloride 0 ml 07/08/23 06:00 Normal Saline 10 Ml Vial IJ 08/06/23 23:59 DIRECTED PRN Sterile Water 0 ml 07/08/23 06:00 Water,Injection,Sterile 10 Ml Vial IJ 08/06/23 23:59 DIRECTED PRN PFSH Active Problems Active Problems: Problem Status Onset Code Screen for colon cancer Z12.11 Gastrocnemius equinus M21.869 Achilles bursitis M76.60 Metatarsalgia of both feet M77.41, M77.42 BMI 36.0-36.9,adult Z68.36 Hypothyroidism E03.9 Acquired hammer toes of both feet M20.41, M20.42 Chronic pain of left heel M79.672, G89.29 Anxiety F41.9 Chronic low back pain M54.5, G89.29 Depressive disorder F32.9 Asymptomatic varicose veins of lower extremity I83.90 Medical History Medical History Lateral epicondylitis of both elbows (07/28/15) Surgical History Surgical History (Updated 07/08/23 @ 10:23 by Irene Salgado RN) H/O elbow surgery Right, 6 years ago VEIN ABLATION (~07/2013) Tonsillectomy A CHILD Tobacco Smoking/Tobacco Use Status: Former Tobacco Use Passive smoking exposure: Yes Second hand exposure: Yes Alcohol Alcohol Intake: current Alcohol intake frequency: holidays/special occasions only Alcohol type: hard liquor Substance Use Substance use: Rarely Substance use type: marijuana Counseling provided: none Vital Signs and Lab Results Vital Signs Most Recent Vital Signs in EMR: Most Recent Vital Signs Temp Pulse Resp BP Pulse Ox 37.0 C 85 16 141/87 H 98 07/08/23 10:21 07/08/23 10:21 07/08/23 10:21 07/08/23 10:21 07/08/23 10:21 Point of Care Results Point of Care Results: POC- Test(urine) Negative 07/08/23 10:48 Lab Results Blood Type / Crossmatch: No Data to Display Complete Blood Count: No Data to Display Complete Metabolic Panel: No Data to Display Liver Function Panel: No Data to Display Coagulation Panel: No Data to Display Cardiac Panel: No Data to Display Arterial Blood Gas: No Data to Display Venous Blood Gas: No Data to Display Pancreas Panel: No Data to Display Thyroid Panel: No Data to Display Infectious Disease: No Data to Display Blood Cultures: No Data to Display Toxicology Panel: No Data to Display Panel: No Data to Display Anesthesia Assessment and Plan Anesthesia History Personal History: [place] [facility]Vomited in mask and then was aware during case)) and Awareness Under Anesthesia Family History: No Family History of Anesthesia Complications Exercise Tolerance Exercise Tolerance: Metabolic Equivalents>4 Pertinent Negatives Pertinent Negatives: No Symptoms of GERD, No Major Cardiovascular Symptoms or Complaints, No Major Pulmonary Symptoms or Complaints and No History of CVA/TIA Cardiac & Pulmonary Exam Cardiac Exam: Normal S1/S2 Heart Sounds Pulmonary Exam: Clear Bilateral Breath Sounds Implantable Cardiac Device Does patient have a Pacemaker or an ICD?: No Airway Exam Known Difficult Airway: No Mallampati Class: 2 Mouth Opening: Narrow (< 3cm) Thyromental Distance: Greater than 3 cm Neck Range of Motion: Full ROM Neck Circumference: Normal Teeth Condition: Normal Dentition ASA Classification ASA Score: ASA 2 Emergency Case?: No NPO Status NPO Status: NPO Clears >2 hours, Solids >8 hours Status Status: Negative HCG Anesthesia Plan Resuscitation Status: Full Code Anesthesia Technique: General Anesthesia Airway Planned: Natural Airway Monitors Used: Standard Monitors
[2023-07-08 11:39] VITALS: BMI 38.0
[2023-07-08 12:55] VITALS: BP 124/72; PULSE 78; RESP 16; TEMP 36.4; O2SAT 96
--- NOTE | 2023-07-08 13:50 | BOWEL_PTH ---
PATIENT: Noman Lewsi LOC: [facility] U#:[id number] AGE/SX: 48/F ROOM: RE07/08/[address]: Addi [place] MD : 1975 BED: DIS: 07/08/2023 SPEC #: [id number] RECD: 07/08/23 16:53 STATUS: KRUPA RE #: [id number] OUMAR: 07/08/23 13:[address]: Addi [place] DEPT: Surgical Specimen RECD BY: Chantale Leonard ENTERED: 07/08/23 16:54 SP TYPE: Bowel OTHR DR: Vimal Gutierrez DNP Tissues: 1 - BIOPSY BOWEL Procedures: GROSS AND MICRO LEVEL 4 Comments: [id number]
[2023-07-08 14:24] VITALS: BP 124/72; PULSE 78; RESP 16; TEMP 36.4; O2SAT 96
--- NOTE | 2023-07-08 14:47 | W.ANESPOSTOP ---
Postoperative Evaluation Date, Time and Location Date Performed: 07/08/23 Time Performed: 14:47 Patient Location: Day Surgery Unit Vital Signs Most Recent Imported Vital Signs: Most Recent Vital Signs Temp Pulse Resp BP Pulse Ox 36.4 C L 78 16 124/72 96 07/08/23 14:24 07/08/23 14:24 07/08/23 14:24 07/08/23 14:24 07/08/23 14:24 Pain Score Most Recent Pain Score: Most Recent Pain Score Pain Level 0 07/08/23 14:24 Assessment Mental Status: Awake (Alert & Oriented to Patient Baseline) Airway and Respiratory Function: Patent airway with normal (patient baseline) respiratory exam Cardiovascular Function: Hemodynamically Stable Hydration Status: Adequately Hydrated Nausea & Vomiting: No Nausea or Vomiting Pain: Pt. Denies Any Pain Peripheral Nerve Block: Patient did not receive a nerve block
== END 2023-07-08 14:45 | disposition home or self-care (01) ==
LOC: SUR 09:27
PROVIDERS: PCP Nurse Practitioner Family; Visit Provider Surgery
PROC: 0DJD8ZZ Inspection of Lower Intestinal Tract, Via Natural or Artificial Opening Endoscopic (ICD-10-PCS; CPT 45378; principal; 2023-07-08 12:30)
DX: Z12.11 Encounter for screening for malignant neoplasm of colon (principal); D12.5 Benign neoplasm of sigmoid colon
CPT/HCPCS: 45380; 81025; 88305

== ENCOUNTER → 2023-08-22 00:36 | Outpatient (CLI) | payer BC, SELFPAY ==
--- NOTE | 2023-08-22 08:15 | DI.MAMMO_ITS ---
Exam(s) MAMMO SCREENING EXAM: MAMMO SCREENING CLINICAL HISTORY: screening,z12.39 TECHNIQUE: Bilateral full field digital CC and MLO mammographic images were obtained with 3D tomosyn thesis and utilizing computer aided detection (CAD). COMPARISON: Available for comparison. FINDINGS: Masses/Architectural Distortion: None seen. Microcalcifications: No suspicious pleomorphic-type are seen. Skin Thickening/Nipple Retraction: None. IMPRESSION: 1. No significant interval change with no specific features of malignancy noted. 2. Unless there is more urgent need, screening mammography is recommended, as per [employer] guidelines. BI-RADS Category 1 - Negative Breast Density - Category B - Scattered areas of fibroglandular density Breast density category C or D implies that the patient has dense breast tissue. Dense breast tissue is very common and is not abnormal but dense breast tissue can make it harder to find cancer on a ma mmogram. Also, dense breast tissue may increase their breast cancer risk. This information about the result of the mammogram report was provided to the patient to raise their awareness. Use this report when you speak with the patient about their risks for breast cancer, which includes their family hist ory. At that time, you may recommend for more screening tests (Ultrasound or MRI) as they might be us eful based on their risk. A negative radiographic report should not delay biopsy if a dominant or clinically suspicious mass is present. Up to ten percent of cancers are not identified on mammography. A negative report may reinforce clinical impression. Adenosis and dense breasts may obscure an underlying neoplasm. False positive reports average 6 to 10%. Patient will receive a letter notifying them of these results.
== END ==
PROVIDERS: PCP Nurse Practitioner Family; Visit Provider Nurse Practitioner Family
DX: Z12.31 Encounter for screening mammogram for malignant neoplasm of breast (principal)
CPT/HCPCS: 77063; 77067

== ENCOUNTER 2024-07-25 02:43 | Outpatient (CLI) | payer OTHER, SELFPAY ==
[2024-07-25 12:43] LABS: ALT 18 U/L (14-59); AST 12 U/L (15-37); Albumin 3.3 g/dL (3.4-5.0); Alkaline Phosphatase 84 U/L (46-116); Anion Gap 8.4 mmol/L (3-11); BUN 14 mg/dL (7-18); CO2 28.6 mmol/L (21.0-32.0); CREATININE 0.8 mg/dL (0.55-1.02); Calcium 9.1 mg/dL (8.5-10.1); Calculated LDL 111 mg/dL (<100); Chloride 108 mmol/L (98-107); Cholesterol 175 mg/dL (<200); Estimated GFR 90.83 (mL/min/1.73m2); Glucose 84 mg/dL (74-106); HDL Cholesterol 40 mg/dL (40-60); Potassium 3.8 mmol/L (3.5-5.1); Sodium 145 mmol/L (136-145); TSH (W/Ref FT4) 0.91 uIU/mL (0.36-3.74); Total Protein 7.3 g/dL (6.4-8.2); Triglyceride 121 mg/dL (<150)
== END 2024-07-25 02:44 | disposition home or self-care (01) ==
LOC: LOS 02:43
PROVIDERS: PCP Nurse Practitioner Family; Visit Provider Nurse Practitioner Family
DX: E03.9 Hypothyroidism, unspecified (principal); Z13.220 Encounter for screening for lipoid disorders
CPT/HCPCS: 36415; 80053; 80061; 84443

== ENCOUNTER 2024-09-04 01:16 | Outpatient (CLI) | payer OTHER, SELFPAY ==
--- NOTE | 2024-09-04 07:45 | DI.RAD_ITS ---
Exam(s) XR CHEST 2V PA LATERAL EXAM: XR CHEST 2V PA LATERAL CLINICAL HISTORY: cough,R05.9 TECHNIQUE: 2D digital imaging was performed. Two views. COMPARISON: CR ABD FLAT UPRIGHT PA CHEST from 04/03/2014 FINDINGS: HEART: Normal size. Aorta: Not dilated. PULMONARY VASCULATURE: Normal. MEDIASTINUM: Unremarkable. LUNGS: Clear. PLEURAL SPACE: No pleural effusion or pneumothorax. BONE:Unremarkable for age. SOFT TISSUES: Unremarkable. IMPRESSION: No acute abnormality. DATA REPOSITORY: RADIATION DOSE DELIVERED:
== END 2024-09-04 01:36 ==
LOC: DI 01:17
PROVIDERS: PCP Nurse Practitioner Family; Visit Provider Nurse Practitioner Family
DX: Z12.31 Encounter for screening mammogram for malignant neoplasm of breast (principal); R05.9 Cough, unspecified
CPT/HCPCS: 77063; 77067; 71046

== ENCOUNTER 2024-10-01 03:33 | Outpatient (CLI) | payer OTHER, SELFPAY ==
[2024-10-01] MEDS: Inhaler, Assist Device 1 EACH MC (16:20)
[2024-10-01] MEDS: Levalbuterol HFA 15 GM INH 4 PUFF IH (16:21)
--- NOTE | 2024-10-16 12:37 | W.PFT ---
Date of service: 10/01/24 Time of Service: 13:12 Pulmonary Function Test Result Indications: Cough Interpretation Spirometry: There is no airflow limitation. No bronchodilator response. Lung Volumes: Normal lung volumes Diffusion Capacity: Normal diffusion Airway Pressure: Normal airways resistance Impression Normal pulmonary function testing Clinical Correlation therefore is recommended.
== END 2024-10-01 03:34 | disposition home or self-care (01) ==
LOC: RT 03:33
PROVIDERS: PCP Nurse Practitioner Family; Visit Provider Student in an Organized Health Care Education/Training Program
DX: R05.9 Cough, unspecified (principal)
CPT/HCPCS: 94060; 94726; 94729

== ENCOUNTER 2025-08-10 14:01 | Outpatient (REF) | payer OTHER, SELFPAY ==
[2025-08-10 16:37] LABS: HCT 37.3 % (36.0-46.0); HGB 11.8 g/dL (11.2-15.7); MCH 26.3 pg (27.0-33.0); MCHC 31.6 % (32.0-36.0); MCV 83 fL (80-95); MPV 10.7 fL (8.0-11.0); Platelet Count 321 10^3/uL (130-400); RBC 4.48 10^6/uL (3.93-5.22); RDW 13.2 % (11.7-14.6); RDW-SD 39.8 fL; WBC 9.31 10^3/uL (4.4-10.8)
[2025-08-10 17:00] LABS: ALT 15 U/L (10-49); AST 15 U/L (<34); Albumin 4.3 g/dL (3.2-5.0); Alkaline Phosphatase 93 U/L (46-116); Anion Gap 8.2 mmol/L (3-11); BUN 12 mg/dL (9-23); Bilirubin, Total 0.20 mg/dL (0.2-1.2); CO2 27.8 mmol/L (20.0-31.0); Calcium 8.8 mg/dL (8.3-10.6); Chloride 109 mmol/L (98-107); Glucose 86 mg/dL (74-106); Potassium 3.9 mmol/L (3.5-5.1); Sodium 145 mmol/L (136-145); Total Protein 7.1 g/dL (5.7-8.2)
[2025-08-10 17:01] LABS: TSH (W/Ref FT4) 5.25 uIU/mL (0.55-4.78)
== END 2025-08-10 14:02 | disposition home or self-care (01) ==
LOC: LBN 14:01
PROVIDERS: PCP Nurse Practitioner Family; Visit Provider Nurse Practitioner Family
DX: R19.7 Diarrhea, unspecified (principal); E03.9 Hypothyroidism, unspecified
CPT/HCPCS: 80053; 82784; 83516; 85027; 84439; 84443

== ENCOUNTER 2025-08-17 07:11 | Outpatient (REF) | payer OTHER, SELFPAY ==
[2025-08-17 08:04] LABS: EPI 027-NAP1-B1 PRESUMPTIVE NEGATIVE
[2025-08-18 11:32] LABS: Campylobacter PCR Negative (Negative); Shiga Toxin PCR Negative (Negative); Shigella/Enteroinvasive Ecoli Negative (Negative)
== END 2025-08-17 07:12 | disposition home or self-care (01) ==
LOC: LBN 07:11
PROVIDERS: PCP Nurse Practitioner Family; Visit Provider Nurse Practitioner Family
DX: R19.7 Diarrhea, unspecified (principal)
CPT/HCPCS: 87015; 87177; 87209; 87269; 87272; 87505; 83630; 83993